=== PATIENT | female | born 1935 | race Caucasian/White ===

== ENCOUNTER 2017-08-20 07:47 | Emergency (ER) | payer MEDICARE, OTHER ==
--- NOTE | 2017-08-20 08:09 | EDM.PDOC ---
ED HPI GENERAL MEDICAL PROBLEM - General Chief Complaint: Lower Extremity Injury/Pain Stated Complaint: FALL AT HOME Time Seen by Provider: 08/20/17 07:48 Source of Information: Reports: Patient History Limitations: Reports: No Limitations - History of Present Illness INITIAL COMMENTS - FREE TEXT/NARRATIVE: Patient frantz here by EMS due to a fall at home on a rug near her back door. She had difficulty getting up off of the floor. She denies hitting her head, no LOC, does not take anticoagulation. She states she thinks she could walk on it with her walker. Is wanting to go home. Pain to her right knee with swelling and bruising seen. She has no other complaints. Open wound to her right knee and left lower bliss. Onset: Today, Sudden Location: Reports: Lower Extremity, Left, Lower Extremity, Right Quality: Reports: Sharp, Stabbing Severity: Mild Improves with: Reports: Cold Therapy Worsens with: Reports: Movement - Related Data Allergies Allergy/AdvReac Type Severity Reaction Status Date / Time No Known Allergies Allergy Verified 08/20/17 07:53 Home Meds: Home Meds Gabapentin [Neurontin] 100 mg PO BID 08/20/17 [History] Review of Systems - Review of Systems Review Of Systems: See Below Constitutional: Reports: No Symptoms Eyes: Reports: No Symptoms Ears: Reports: No Symptoms Nose: Reports: No Symptoms Mouth/Throat: Reports: No Symptoms Respiratory: Reports: No Symptoms Cardiovascular: Reports: No Symptoms GI/Abdominal: Reports: No Symptoms Genitourinary: Reports: No Symptoms Musculoskeletal: Reports: Leg Pain, Joint Pain, Muscle Pain Skin: Reports: Wound Neurological: Reports: No Symptoms Psychiatric: Reports: No Symptoms ED EXAM, GENERAL - Physical Exam Exam: See Below Exam Limited By: No Limitations General Appearance: Alert, WD/WN, No Apparent Distress Eye Exam: Bilateral Eye: EOMI Throat/Mouth: Normal Inspection, Normal Oropharynx Head: Atraumatic, Normocephalic Neck: Normal Inspection Respiratory/Chest: No Respiratory Distress, Lungs Clear, Normal Breath Sounds, No Accessory Muscle Use, Chest Non-Tender Cardiovascular: Normal Peripheral Pulses, Regular Rate, Rhythm, No Murmur Peripheral Pulses: 2+: Posterior Tibial (L), Posterior Tibial (R), Dorsalis Pedis (L), Dorsalis Pedis (R) GI/Abdominal: Normal Bowel Sounds, Soft, Non-Tender Extremities: Normal Capillary Refill, Pedal Edema, Joint Swelling, Leg Pain, Limited Range of Motion (right knee) Neurological: Alert, Oriented, CN II-XII Intact, Normal Cognition, No Motor/ Sensory Deficits Psychiatric: Normal Affect, Normal Mood Skin Exam: Warm, Dry, Normal Color, Wound/Incision (abrasion to right knee, skin tear to left lower bliss) Course - Vital Signs Last Recorded V/S: Last Vital Signs Temp 35.8 C 08/20/17 07:47 Pulse 76 08/20/17 07:47 Resp 18 08/20/17 07:47 BP 141/85 H 08/20/17 07:47 Pulse Ox 94 L 08/20/17 07:47 - Orders/Labs/Meds Orders: Active Orders 24 hr Category Date Time Status Knee 3V Rt [CR] Stat Exams 08/20/17 07:53 Taken Meds: Medications Discontinued Medications Generic Name Dose Route Start Last Admin Trade Name Jacksonq PRN Reason Stop Dose Admin Hydrocodone Bitart/Acetaminophen 1 tab 08/20/17 08:36 08/20/17 08:49 Conroy 325-10 Mg PO 08/20/17 08:37 1 tab ONETIME ONE Administration - Re-Assessments/Exams Free Text/Narrative Re-Assessment/Exam: 08/20/17 08:54 knee x-ray negative for acute fracture. Moderate joint effusion Departure - Departure Time of Disposition: 09:01 Disposition: Home, Self-Care 01 Condition: Good Clinical Impression: Sprain of right knee Qualifiers: Encounter type: initial encounter Qualified Code(s): S83.91XA - - Discharge Information Instructions: Knee Sprain, [id number] Referrals: Ramona Yu MD [Primary Care Provider] - Forms: ED Department Discharge Additional Instructions: Make sure to keep your knee elevated, wrapped with an TERRY wrap, and keep ice on it for 20-30 minutes at a time. Do not place ice directly on your knee and put it in a cloth or something to help prevent soft tissue damage from the cold. Follow up with your primary provider as symptoms warrant If your pain does not get better or is still painful after 10 days, see Dr. Yu for a possible MRI to check for soft tissue damage including cartilage, tendons, or ligaments. May take ibuprofen and tylenol for pain control. Please call us with any questions or concerns. Thank you for choosing [facility] for your care. - Problem List & Annotations (1) Sprain of right knee SNOMED Code(s): 78386688 Code(s): S83.91XA - SPRAIN OF UNSPECIFIED SITE OF RIGHT KNEE, INITIAL ENCOUNTER Status: Acute Priority: Low Qualifiers: Encounter type: initial encounter - Problem List Review Problem List Initiated/Reviewed/Updated: Yes - My Orders Last 24 Hours: My Active Orders 08/20/17 07:53 Knee 3V Rt [CR] Stat - Assessment/Plan Last 24 Hours: My Active Orders 08/20/17 07:53 Knee 3V Rt [CR] Stat Assessment:: Right knee sprain Plan: Make sure to keep your knee elevated, wrapped with an TERRY wrap, and keep ice on it for 20-30 minutes at a time. Do not place ice directly on your knee and put it in a cloth or something to help prevent soft tissue damage from the cold. Follow up with your primary provider as symptoms warrant If your pain does not get better or is still painful after 10 days, see Dr. Yu for a possible MRI to check for soft tissue damage including cartilage, tendons, or ligaments. May take ibuprofen and tylenol for pain control. Please call us with any questions or concerns. Thank you for choosing [facility] for your care.
[2017-08-20] MEDS ORDERED: Acetaminophen/HYDROcodone 325-10 MG Tab PO ONE (08:36)
== END 2017-08-20 09:08 | disposition home or self-care (01) ==
LOC: VM.ED 07:47
DX: S81.812A Laceration without foreign body, left lower leg, initial encounter (principal); S83.91XA Sprain of unspecified site of right knee, initial encounter; W18.30XA Fall on same level, unspecified, initial encounter; Y92.009 Unspecified place in unspecified non-institutional (private) residence as the place of occurrence of the external cause
CPT/HCPCS: 73562; 99284; A9270; 99283-GF

== ENCOUNTER 2018-01-06 21:50 | Emergency (ER) | payer MEDICARE, OTHER ==
[2018-01-06] MEDS ORDERED: Sodium Chloride 0.9% 10 ML Syringe FLUSH PRN (22:06)
--- NOTE | 2018-01-06 22:07 | EDM.PDOC ---
ED HPI GENERAL MEDICAL PROBLEM - General Chief Complaint: Lower Extremity Injury/Pain Time Seen by Provider: 01/06/18 21:58 Source of Information: Reports: Patient, EMS History Limitations: Reports: No Limitations - History of Present Illness INITIAL COMMENTS - FREE TEXT/NARRATIVE: Pt. states that she was reaching over to turn on a fan in her bedroom when she fell, injuring her R ankle. Pt. states that the discomfort is located on the R anterior ankle. She denies any numbness/tingling to the extremity. She did not feel any crack/snap or experience any crepitus during the incident. She states that she did not strike her head. Denies any neck or back pain. She states that all of her discomfort is isolated to her R anterior ankle. Onset: Today Location: Reports: Lower Extremity, Right Quality: Reports: Ache, Throbbing Severity: Severe Worsens with: Reports: Movement Context: Reports: Trauma - Related Data Allergies Allergy/AdvReac Type Severity Reaction Status Date / Time No Known Allergies Allergy Verified 01/06/18 21:58 Home Meds: Home Meds Aspirin [Halfprin] 81 mg PO DAILY 01/06/18 [History] Pregabalin [Lyrica] 75 mg PO BID 01/06/18 [History] Past Medical History Cardiovascular History: Reports: Hypertension Musculoskeletal History: Reports: Back Pain, Chronic Social & Family History - Tobacco Use Smoking Status *Q: Current Every Day Smoker Years of Tobacco use: 60 Packs/Tins Daily: 1 ED ROS GENERAL - Review of Systems Review Of Systems: See Below Constitutional: Reports: No Symptoms HEENT: Reports: No Symptoms Respiratory: Reports: No Symptoms Cardiovascular: Reports: No Symptoms Endocrine: Reports: No Symptoms GI/Abdominal: Reports: No Symptoms : Reports: No Symptoms Musculoskeletal: Reports: Leg Pain (R anterior ankle) Skin: Reports: No Symptoms Neurological: Reports: No Symptoms Psychiatric: Reports: No Symptoms Hematologic/Lymphatic: Reports: No Symptoms Immunologic: Reports: No Symptoms ED EXAM, GENERAL - Physical Exam Exam: See Below Exam Limited By: No Limitations General Appearance: Alert, WD/WN, No Apparent Distress Neck: Normal Inspection, Supple, Non-Tender, Full Range of Motion Respiratory/Chest: No Respiratory Distress, Lungs Clear, Normal Breath Sounds, No Accessory Muscle Use, Chest Non-Tender Cardiovascular: Normal Peripheral Pulses, Regular Rate, Rhythm, No Edema, No Gallop, No JVD, No Murmur, No Rub Peripheral Pulses: 2+: Posterior Tibial (L), Posterior Tibial (R), Dorsalis Pedis (L), Dorsalis Pedis (R) Extremities: Joint Swelling, Leg Pain (R anterior ankle), Limited Range of Motion Neurological: Alert, Oriented, CN II-XII Intact ED GENERAL MEDICAL PROCEDURES - Splinting Right Lower Extremity Splint Site: R lower leg/distal tib fib Splint Material: Fiberglass Splint Design: Sugar Tong Applied & Form Fitted By: Provider Provider Post-Splint Application NV Check: NV Status Normal, Good Position Complications: No Course - Vital Signs Last Recorded V/S: Last Vital Signs Temp 36.4 C 01/06/18 21:58 Pulse 83 01/06/18 21:58 Resp 16 01/06/18 21:58 BP 110/72 01/06/18 21:58 Pulse Ox 97 01/06/18 21:58 - Orders/Labs/Meds Orders: Active Orders 24 hr Category Date Time Status Ankle 2V Rt [CR] Stat Exams 01/06/18 21:58 Ordered - Radiology Interpretation Free Text/Narrative:: Spiral fracture of R tibia Departure - Departure Time of Disposition: 11:00 Disposition: DC/Tfer to Acute Hospital 02 Clinical Impression: Fracture of tibia with fibula, right, closed, Closed fracture of tibia AND fibula - Discharge Information Forms: ED Department Discharge - Problem List Review Problem List Initiated/Reviewed/Updated: Yes - My Orders Last 24 Hours: My Active Orders 01/06/18 21:58 Ankle 2V Rt [CR] Stat - Assessment/Plan Last 24 Hours: My Active Orders 01/06/18 21:58 Ankle 2V Rt [CR] Stat Assessment:: R distal tib fib fracture Plan: Transfer [facility] ground ambulance. Dr. Zhang-Hospitalist is accepting.
[2018-01-06] MEDS: Morphine 4 MG/ML Syringe IVPUSH ONE (22:13)
[2018-01-06] MEDS: Morphine 2 MG/ML Syringe IVPUSH ONE ×2 (22:35→23:21)
[2018-01-06] MEDS: Ondansetron 4 MG/2 ML SDV IVPUSH ONE (22:37)
[2018-01-06] MEDS: Sodium Chloride 0.9% 1,000 ML IV STA (23:47)
== END 2018-01-06 23:59 | disposition short-term general hospital (02) ==
LOC: VM.ED 21:50
DX: S82.301A Unspecified fracture of lower end of right tibia, initial encounter for closed fracture (principal); S82.831A Other fracture of upper and lower end of right fibula, initial encounter for closed fracture; I10 Essential (primary) hypertension; F17.210 Nicotine dependence, cigarettes, uncomplicated; Z79.82 Long term (current) use of aspirin; W19.XXXA Unspecified fall, initial encounter
CPT/HCPCS: 29515; 36415; 73600-RT; 80053; 85025; 85610; 96374; 96375; 96376; 99285; G0480; J2270; J2405; J7030

== ENCOUNTER 2018-01-11 10:37 | Inpatient (IN) | payer MEDICARE, OTHER ==
[2018-01-11] MEDS ORDERED: Fluticasone Propionate Nasal Spray 16 GM Bottle NASBOTH PRN (12:34)
[2018-01-11] MEDS: Enoxaparin 30 MG/0.3 ML Syringe SUBCUT SCH (13:00)
[2018-01-11] MEDS: Acetaminophen/HYDROcodone 325-5 MG Tab PO PRN ×3 (13:04→20:50)
--- NOTE | 2018-01-11 19:49 | HP ---
HISTORY OF PRESENT ILLNESS: The patient is an 82-year-old female who had fallen at home on 01/07/2018. She had some wine and felt her gait unstable. She had been started on Lyrica about a week prior because of chronic back pain, which had been helping better with her back pain and started gabapentin. The patient does have known peripheral vascular disease as well as chronic low back pain. The patient underwent internal fixation with intramedullary william of her right tib - fib fracture and she is to be nonweightbearing for 6 to 8 weeks afterward. Her hemoglobin had dropped from 13 down to 10.9. She did not require transfusion. She did have a hypoxic episode after receiving some IV Dilaudid, but did recover. She did use incentive spirometry. She did have a NicoDerm patch placed to help with smoking and a nicotine withdrawal. Her bowels did work today after being given a suppository. The patient at first had just worked with physical therapy. She is to leave current dressing on her right leg for a week. She follows up with Ortho in 2 weeks' time. MEDICATIONS: That she is currently on is, 1. Calcium carbonate 1250 one pill a day. 2. Vitamin D 1000 units 1 pill a day. 3. Acetaminophen 325 as needed. 4. Aspirin 81 mg 1 pill daily. 5. Fluticasone 1 to 2 sprays each nostril twice a day as needed. 6. Hydrochlorothiazide 25 mg 1 pill daily. 7. Lisinopril 10 mg 1 pill a day. 8. Metoprolol succinate 25 mg 1 pill a day. 9. Singulair 10 mg 1 pill a day. 10.Multivitamin 1 pill a day. 11.Lyrica 75 mg 1 pill twice a day. 12 Hydrocodone/ apap 5/325 mg 1 every 4 hrs as needed. Note, prior to her hospitalization, she had been on Tylenol No.3 two pills every 6 hours for moderate pain. ALLERGIES: Prolia. She became weak and nauseated. PAST MEDICAL HISTORY: She has hypertension. She has COPD. She has peripheral vascular disease. 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 She had Charcot joint to her left foot, nondiabetic, wears inserts. She has had chronic low back pain without sciatica, been to a chiropractor, massage. She has been on meloxicam for this, Tylenol No.3, declined physical therapy. MRI on 08/14/2016 showed L4-5 severe spinal stenosis and she had an MRI of her thoracic spine and had degenerative joint disease. I believe she has had a joint injection 1 time. She has had a hyperplastic colon polyps on 05/26/2012 x2. She was supposed to have a next colonoscopy 2017; however, she refused to have that. She has had degenerative joint disease. Elevated CEA on 08/01/2015 at 7.5. She did have colon cancer surgery in 1979 and she has had previous known colon polyps. She has had hypertension, gait abnormality, which is chronic. She had a syncopal episode on 09/25/2009. She had negative carotid ultrasound, negative Cardiolite stress test. Echo at that time showed ejection fraction of 60%. Mild diastolic dysfunction. Trace mitral regurgitation. Pulmonary artery pressure 37. She has had a hiatal hernia. Her gastric bypass was in the . She has had hyperglycemia. She has had lumbar canal stenosis. She did have referral to Neurosurgery. She did have colon cancer in 1979, unknown type of colon cancer. She has had some depression in 2017. She had started Cymbalta, used it for a month, then stopped. She has had some mixed incontinence. She declined medication or physical therapy. Osteoporosis, She had onset of osteopenia in 2002. In 2005, she had osteoporosis. Started Prolia in 2011 and 2014 DEXA scan, improved. She has had emphysema on 05/2014. Peak flow meter was 250. She smokes 1-1/2 packs a day. Peripheral vascular disease. She had a chronic infection of her right foot on 10/30/2014 which had abnormal ESTEBAN. She had an arterial ultrasound of right leg. She has had osteoarthritis. She has spinal stenosis of lumbar region with neurogenic claudication. She has had tobacco use. She had a traumatic ulcer of her right knee on 08/20/2017 from a fall. She had a foot cellulitis that was involved with the wound clear with many skin grafting procedures. She has had urticaria. PAST SURGICAL HISTORY: She has had an appendectomy, carpal tunnel, cataract surgery bilaterally, cholecystectomy, colon resection in 1980 for colon cancer. She had gastric bypass in 1980, hysterectomy. She has had intravitreal injection of her right eye bilaterally. 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 She had lysis of adhesions of her abdomen in 1977. She has had vascular bypass on the right on 01/03/2015, right femoral [id number] popliteal bypass to saphenous vein graft. She has had a Yag capsulotomy on both eyes. FAMILY MEDICAL HISTORY: Mother has had colorectal cancer. Father had blood problems. Sister has had breast cancer. Grandchild had a traumatic brain injury at 18. SOCIAL HISTORY: She currently smokes quarter pack a day of cigarettes every day. She has smoked for many years. She drinks about 2 glasses of wine per week. She is . She has children, 2 sons and a daughter. VACCINATION: She has had her flu shot on 08/12/2017. She had a pneumococcal 13 on 07/31/2015. She had pneumococcal 23 on 09/21/2007 and 09/13/2002. Tdap on 04/22/2011. Zostavax on 08/06/2012. REVIEW OF SYSTEMS: She does have chronic back pain. She denies any sore throat. No headaches. No double vision. No cough. No shortness of breath. Her bowels have been somewhat slow. She has pain of her right leg from her recent surgery and fall. She does have problems with her joint of her left foot with standing. She does have coughing. No bruising problems. OBJECTIVE: VITAL SIGNS: Her weight is 90.71 kg, her height 1.6 m, temperature is 36.2, pulse 78, blood pressure is 135/67, respirations are 18, sats are 97%. SKIN: [place], warm, and dry. HEENT: Pupils equal and react to light. Voice is slightly hoarse, which is chronic for patient. Mucous membranes are moist. NECK: Supple. Nontender. No thyromegaly. HEART: Regular rate and rhythm without murmurs or bruits. Lungs: Have diminished breath sounds on bases. BREASTS: Deferred. Abdomen: Obese, soft, nontender. Bowel sounds present. No hepatosplenomegaly. Her right lower leg is wrapped from her toes to above her knee. She does have trace edema on her right foot that is slightly tender to palpation. Her left leg is slender thin. There is no induration, no swelling. She has normal sensation of her lower legs. NEUROLOGIC: She moves all extremities symmetric. Strength is noted to be weak throughout her body. PSYCH: Her mood is alert, good. She is pleasant to visit with. She does feel a bit frustrated with her chronic health conditions. IMPRESSION: 1. status post right leg internal fixation with william placement of spiral tibial fracture. 2. Right knee strain. 3. Mild anemia secondary to blood loss. 4. Hypertension. 5. Chronic obstructive pulmonary disease. 6. Nicotine dependence. 7. Osteoporosis. 8. Chronic lumbar back pain with lumbar stenosis. 9. Allergic rhinitis. 10.History of gastric bypass. 11.Charcot joint of foot. 12.Gait imbalance. PLAN: The patient will be admitted to swing bed for therapy. She has to be nonweightbearing for 6 weeks. She will need physical therapy for strengthening to learn how to walk with a walker. She will receive occupational therapy, learn how to do her ADLs. She will have Social Care Services also for the patient. We will continue nicotine patch for patient. We will hold her Tylenol No.3 right now and just use her hydrocodone for pain control. She is currently on Lyrica, which she says has started to help with her chronic back pain. She has only been on it for about a week or so, so we may need to increase the dose of this. We will check a urine on the patient to make sure she does not have bladder infection. We will need to keep track of her bowels and make sure she does not end up with constipation problems. We will recheck her electrolytes and hemoglobin in a few days. The patient will be placed on Lovenox for DVT prophylaxis. Because of risk of DVTs of her being more immobilized because of need for healing. Anticipation would be for the patient to be able to go home. 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 The patient will keep her appointments with Orthopedics. Would not be surprised the patient would have some delayed healing of her wounds due to her history of peripheral vascular disease and her previous history of prolonged traumatic bruise to her knee that took several months to heal up. We will need to keep track of the patient's mood and if she would happen to become more depressed, she may need treatment at this again. GM01/11/2018 12:58:05 MODL: 01/11/2018 19:30:42 /[id number] CHRISSIE
[2018-01-11] MEDS: Montelukast 10 MG Tab PO SCH (20:49)
[2018-01-11] MEDS: Melatonin 3 MG Tab PO PRN (20:49)
[2018-01-11] MEDS: Magnesium Hydroxide 400 MG/5 ML Susp 30 ML Cup PO PRN (20:50)
[2018-01-11] MEDS: Pregabalin 25 MG Cap PO SCH (20:50)
[2018-01-12] MEDS: Acetaminophen/HYDROcodone 325-5 MG Tab PO PRN ×4 (00:56→20:40)
[2018-01-12 07:08] LABS: CHLORIDE,CL 96 mmol/L (98-107); SODIUM,NA 132 mmol/L (136-145)
[2018-01-12] MEDS: Enoxaparin 30 MG/0.3 ML Syringe SUBCUT SCH (07:57)
[2018-01-12] MEDS: Pregabalin 25 MG Cap PO SCH ×2 (07:58→20:40)
[2018-01-12] MEDS: Nicotine 21 MG/24 Hr Patch TRDERM SCH (07:58)
[2018-01-12] MEDS: Lisinopril 5 MG Tab PO SCH (07:59)
[2018-01-12] MEDS: Hydrochlorothiazide 25 MG Tab PO SCH (07:59)
[2018-01-12] MEDS: Acetaminophen 325 MG Tab PO PRN ×2 (07:59→14:08)
[2018-01-12] MEDS: Calcium Carbonate/Vitamin D3 1250 MG-200 Unit Tab PO SCH (08:00)
[2018-01-12] MEDS: Metoprolol Succinate 25 MG Tab.ER PO SCH (08:00)
[2018-01-12] MEDS: Cholecalciferol (Vitamin D3) 1,000 Unit Tab PO SCH (08:01)
[2018-01-12] MEDS: Multivitamins with Iron/Calcium/Folic Acid/Minerals Tab PO SCH (08:01)
[2018-01-12] MEDS: Aspirin 81 MG Tab.EC PO SCH (08:01)
[2018-01-12] MEDS: Acetaminophen/oxyCODONE 325-5 MG Tab PO PRN ×2 (10:13→18:13)
[2018-01-12] MEDS: Montelukast 10 MG Tab PO SCH (20:40)
[2018-01-12] MEDS: Melatonin 3 MG Tab PO PRN (20:40)
[2018-01-13] MEDS: Acetaminophen 325 MG Tab PO PRN ×4 (00:45→23:41)
[2018-01-13] MEDS: Acetaminophen/oxyCODONE 325-5 MG Tab PO PRN ×4 (00:46→23:41)
[2018-01-13] MEDS: Acetaminophen/HYDROcodone 325-5 MG Tab PO PRN ×3 (05:25→20:19)
[2018-01-13] MEDS: Calcium Carbonate/Vitamin D3 1250 MG-200 Unit Tab PO SCH (08:22)
[2018-01-13] MEDS: Lisinopril 5 MG Tab PO SCH (08:23)
[2018-01-13] MEDS: Hydrochlorothiazide 25 MG Tab PO SCH (08:23)
[2018-01-13] MEDS: Pregabalin 25 MG Cap PO SCH ×2 (08:23→20:19)
[2018-01-13] MEDS: Cholecalciferol (Vitamin D3) 1,000 Unit Tab PO SCH (08:24)
[2018-01-13] MEDS: Multivitamins with Iron/Calcium/Folic Acid/Minerals Tab PO SCH (08:24)
[2018-01-13] MEDS: Metoprolol Succinate 25 MG Tab.ER PO SCH (08:25)
[2018-01-13] MEDS: Aspirin 81 MG Tab.EC PO SCH (08:26)
[2018-01-13] MEDS: Nicotine 21 MG/24 Hr Patch TRDERM SCH (08:26)
[2018-01-13] MEDS: Enoxaparin 30 MG/0.3 ML Syringe SUBCUT SCH (08:27)
[2018-01-13] MEDS: Melatonin 3 MG Tab PO PRN (20:19)
[2018-01-13] MEDS: Montelukast 10 MG Tab PO SCH (20:19)
[2018-01-14] MEDS: Acetaminophen/HYDROcodone 325-5 MG Tab PO PRN ×4 (02:08→22:55)
[2018-01-14] MEDS: Acetaminophen 325 MG Tab PO PRN (06:21)
[2018-01-14] MEDS: Acetaminophen/oxyCODONE 325-5 MG Tab PO PRN ×3 (06:21→18:34)
[2018-01-14] MEDS: Calcium Carbonate/Vitamin D3 1250 MG-200 Unit Tab PO SCH (07:42)
[2018-01-14] MEDS: Multivitamins with Iron/Calcium/Folic Acid/Minerals Tab PO SCH (07:43)
[2018-01-14] MEDS: Hydrochlorothiazide 25 MG Tab PO SCH (07:43)
[2018-01-14] MEDS: Aspirin 81 MG Tab.EC PO SCH (07:43)
[2018-01-14] MEDS: Metoprolol Succinate 25 MG Tab.ER PO SCH (07:43)
[2018-01-14] MEDS: Lisinopril 5 MG Tab PO SCH (07:43)
[2018-01-14] MEDS: Cholecalciferol (Vitamin D3) 1,000 Unit Tab PO SCH (07:43)
[2018-01-14] MEDS: Pregabalin 25 MG Cap PO SCH ×2 (07:44→20:46)
[2018-01-14] MEDS: Enoxaparin 30 MG/0.3 ML Syringe SUBCUT SCH (07:44)
[2018-01-14] MEDS: Nicotine 21 MG/24 Hr Patch TRDERM SCH (08:40)
--- NOTE | 2018-01-14 09:51 | PN ---
Progress Note for REN BRITTON Date: 01/14/2018 Room #: VM.218 SUBJECTIVE: The patient's pain is a little bit better controlled with oxycodone. The patient comments that she has to get up at least every 2 hours during the night to void. She was wondering what can be done if she should hold back on her diuretic for this. Also, the patient had a previous traumatic ulcer on her right knee that had healed up when seen at her most recent clinic visit and now after her surgery, there has been a recurrence of slight skin sloughing noted. OBJECTIVE: Vital Signs: Her temperature is 36.4, pulse 78, blood pressure is 101/65, respirations are 18, and sats are 98% on room air. General: She is alert and calm to visit. Heart: Regular rate and rhythm. Lungs: Clear to auscultation. Abdomen: Bowel sounds present. Soft. Musculoskeletal: On her right knee, there is a 1 x 3 cm area of irritated skin that is slightly sloughing, which is going down to the subcuticular layer. There is no granulomatous drainage or seepage noted. Neurologic: She is appropriate and alert. She is still weak with transfers. LABORATORY STUDIES: Her hemoglobin on 01/12/2018 had been 11.0, white blood cell count 6.8, and platelets are 252. Sodium is 132, potassium 3.6, creatinine 0.9, GFR greater than 60, glucose 125. Urine on admission was normal. IMPRESSION: 1. Right tib-fib fracture recovery. 2. Weakness secondary to right tib-fib fracture. 3. Anemia secondary to blood loss. 4. Mild hyponatremia. 5. Mixed incontinence. 6. Traumatic ulcer of right knee, which is recurring. 7. Chronic obstructive pulmonary disease. 8. Chronic back pain. PLAN: We will continue her pain pills the same. We will add Ditropan to see if that will help with her bladder. She is warned of side effects of dry mouth as well as constipation. For her knee, we will start adding Optifoam dressing on that to protect the patella skin, to make certain it does not reoccur. The patient had previous grafting surgery to help that heal up. The patient is working with Physical Therapy and Occupational Therapy. Apparently, they had no services that they could offer the patient. Possibly next week, the patient may be able to go home, but it depends on her stability with transfers and her upper body strength. [employer] are working with the patient. The patient is also using the nicotine patches and that is helping with smoking cessation. GM01/14/2018 08:45:31 MODL: 01/14/2018 09:07:43 /[id number]
[2018-01-14] MEDS: Oxybutynin 5 MG Tab.ER PO SCH (10:20)
--- NOTE | 2018-01-14 16:49 | PN ---
2nd Progress Note for REN BRITTON Date: 01/14/2018 Room #: VM.218 SUBJECTIVE: Please see other note done earlier today. The patient was concerned about her incision on the inferior aspect by her ankle if it is starting to become more red. There is questionably little bit of drainage from the area. To note, the patient has not been wanting to keep her Matthew wrap on her legs and she has come here as it was causing discomfort. OBJECTIVE: On inspection, there is a little bit of minimal duskiness on the inferior aspect of her incision. It is not really warm. It does ryder a little bit. To note, the patient does have known peripheral vascular disease as well. There is a trace edema in the foot. IMPRESSION: 1. Post right tib-fib fracture. 2. Peripheral vascular disease. PLAN: I do feel the patient needs to have her Matthew wrap replace the area to help keep the fluid out of there. I do not feel there is any evidence of a cellulitis there right now. We will continue to keep an eye on this. The patient again commented concerned about her patella area that had a previous skin graft for a traumatic ulcer and stated that we have placed a PolyMem dressing on the area and we will just observe this right now, but also having the fluid out of her leg is important as well. GM01/14/2018 16:16:49 MODL: 01/14/2018 16:43:31 /[id number] CHRISSIE
[2018-01-14] MEDS: Montelukast 10 MG Tab PO SCH (20:47)
[2018-01-14] MEDS: Melatonin 3 MG Tab PO PRN (20:47)
[2018-01-14] MEDS: Magnesium Hydroxide 400 MG/5 ML Susp 30 ML Cup PO PRN (20:55)
[2018-01-15] MEDS: Acetaminophen/oxyCODONE 325-5 MG Tab PO PRN ×4 (01:09→20:15)
[2018-01-15] MEDS: Acetaminophen/HYDROcodone 325-5 MG Tab PO PRN ×3 (05:12→22:45)
[2018-01-15] MEDS: Nicotine 21 MG/24 Hr Patch TRDERM SCH (08:11)
[2018-01-15] MEDS: Pregabalin 25 MG Cap PO SCH ×2 (08:12→20:12)
[2018-01-15] MEDS: Aspirin 81 MG Tab.EC PO SCH (08:14)
[2018-01-15] MEDS: Calcium Carbonate/Vitamin D3 1250 MG-200 Unit Tab PO SCH (08:14)
[2018-01-15] MEDS: Multivitamins with Iron/Calcium/Folic Acid/Minerals Tab PO SCH (08:14)
[2018-01-15] MEDS: Oxybutynin 5 MG Tab.ER PO SCH (08:15)
[2018-01-15] MEDS: Enoxaparin 30 MG/0.3 ML Syringe SUBCUT SCH (08:15)
[2018-01-15] MEDS: Cholecalciferol (Vitamin D3) 1,000 Unit Tab PO SCH (08:15)
[2018-01-15] MEDS: Metoprolol Succinate 25 MG Tab.ER PO SCH (11:33)
[2018-01-15] MEDS: Lisinopril 5 MG Tab PO SCH (11:33)
[2018-01-15] MEDS: Hydrochlorothiazide 25 MG Tab PO SCH (11:33)
[2018-01-15] MEDS: Melatonin 3 MG Tab PO PRN (20:12)
[2018-01-15] MEDS: Montelukast 10 MG Tab PO SCH (20:13)
[2018-01-16] MEDS: Acetaminophen/oxyCODONE 325-5 MG Tab PO PRN ×3 (03:52→18:33)
[2018-01-16] MEDS: Oxybutynin 5 MG Tab.ER PO SCH (08:18)
[2018-01-16] MEDS: Metoprolol Succinate 25 MG Tab.ER PO SCH (08:18)
[2018-01-16] MEDS: Cholecalciferol (Vitamin D3) 1,000 Unit Tab PO SCH (08:18)
[2018-01-16] MEDS: Aspirin 81 MG Tab.EC PO SCH (08:18)
[2018-01-16] MEDS: Calcium Carbonate/Vitamin D3 1250 MG-200 Unit Tab PO SCH (08:18)
[2018-01-16] MEDS: Multivitamins with Iron/Calcium/Folic Acid/Minerals Tab PO SCH (08:18)
[2018-01-16] MEDS: Pregabalin 25 MG Cap PO SCH ×2 (08:18→20:28)
[2018-01-16] MEDS: Magnesium Hydroxide 400 MG/5 ML Susp 30 ML Cup PO PRN (08:18)
[2018-01-16] MEDS: Enoxaparin 30 MG/0.3 ML Syringe SUBCUT SCH (08:19)
[2018-01-16] MEDS: Acetaminophen/HYDROcodone 325-5 MG Tab PO PRN ×2 (08:19→20:28)
[2018-01-16] MEDS: Nicotine 21 MG/24 Hr Patch TRDERM SCH (08:19)
[2018-01-16] MEDS: Hydrochlorothiazide 25 MG Tab PO SCH (08:19)
[2018-01-16] MEDS: Lisinopril 5 MG Tab PO SCH (08:20)
[2018-01-16] MEDS: Ibuprofen 200 MG Tab PO PRN ×2 (11:07→15:25)
[2018-01-16] MEDS: Melatonin 3 MG Tab PO PRN (20:27)
[2018-01-16] MEDS: Montelukast 10 MG Tab PO SCH (20:28)
[2018-01-17] MEDS: Acetaminophen/oxyCODONE 325-5 MG Tab PO PRN ×4 (00:30→20:34)
[2018-01-17] MEDS: Acetaminophen/HYDROcodone 325-5 MG Tab PO PRN ×3 (03:52→16:02)
[2018-01-17 06:59] LABS: CHLORIDE,CL 94 mmol/L (98-107); SODIUM,NA 130 mmol/L (136-145)
[2018-01-17] MEDS: Hydrochlorothiazide 25 MG Tab PO SCH (07:37)
[2018-01-17] MEDS: Calcium Carbonate/Vitamin D3 1250 MG-200 Unit Tab PO SCH (07:37)
[2018-01-17] MEDS: Oxybutynin 5 MG Tab.ER PO SCH (07:37)
[2018-01-17] MEDS: Lisinopril 5 MG Tab PO SCH (07:37)
[2018-01-17] MEDS: Multivitamins with Iron/Calcium/Folic Acid/Minerals Tab PO SCH (07:37)
[2018-01-17] MEDS: Aspirin 81 MG Tab.EC PO SCH (07:37)
[2018-01-17] MEDS: Cholecalciferol (Vitamin D3) 1,000 Unit Tab PO SCH (07:38)
[2018-01-17] MEDS: Nicotine 21 MG/24 Hr Patch TRDERM SCH (07:38)
[2018-01-17] MEDS: Metoprolol Succinate 25 MG Tab.ER PO SCH (07:38)
[2018-01-17] MEDS: Pregabalin 25 MG Cap PO SCH ×3 (07:38→20:33)
[2018-01-17] MEDS: Enoxaparin 30 MG/0.3 ML Syringe SUBCUT SCH (07:38)
--- NOTE | 2018-01-17 09:52 | PN ---
Progress Note for REN BRITTON Date: 01/17/2018 Room #: VM.218 Just to let you know when I was hearing your communications, it sounds more garbled-like you are under water. It is just a different sound than what it used to be, but just thought I would give you the FYI. SUBJECTIVE: The patient is still having pain of her back and of her legs. The hydrocodone has helped. She did receive 1 Naprosyn over the weekend, even though she is on Lovenox, so she should not be on this. Patient commented that she has had lowering of her blood pressure, wondering what that could be from. She stated that because she is not smoking at home as well as because she is probably eating a lower salt diet, that may have made a difference. She has had some times where she has not been feeling as lightheaded or as dizzy. She is still nonweightbearing for her right leg. Her family is working to get arrangements at home for her house to have accommodations to be handicapped accessible with a ramp and a medical bed. When she is ready for discharge home, will most likely need home health to be arranged. The patient was going about her followup ortho appointment. It was just to have vicente removed. She was wondering if this can be done here and I stated that no, it is also a postoperative check as well as concern with regarding her skin on her knee that needs to be addressed. OBJECTIVE: Vital Signs: Her temperature is 36.3, pulse 67, blood pressure is 127/71, her respiratory rate is 18, saturations are 94%. Skin: Her leg is wrapped right now, I cannot see her incisions. Heart: Regular rate and rhythm. Lungs: Diminished breath sounds on bases. Abdomen: Soft. LABORATORY DATA: Today shows that her hemoglobin has improved to 11.3 from 11.0. Sodium has dropped slightly to 130, potassium 3.5, creatinine 0.9, GFR greater than 60. IMPRESSION: 1. Right tib-fib fracture. 2. Chronic back pain. 3. Postoperative knee pain. 4. Hyponatremia. 5. Anemia, improving. 6. Some traumatic ulcer on the right knee that has reoccurred. PLAN: We will reduce the patient's hydrochlorothiazide to 12.5 mg a day. Yes, she does need to be seen by Ortho. We will have her be arranged to have a handicap transfer van. It is unclear as to when the patient will be able to be discharged home yet as she is still improving with physical therapy here at the hospital and the patient would need support services at home. We will encourage her to eat more salt in her diet for her bowels. She is already on the senna 2 plus twice a day, so we will add some MiraLAX on board to help make certain that her stools stay soft. We will increase her Lyrica to 75 mg 1 pill 3 times a day. The patient will need to have instructions on how to use Lovenox, so she will need to stay on this until she is weightbearing to prevent risk of DVTs. GM01/17/2018 08:51:02 MODL: 01/17/2018 09:39:44 /[id number]
[2018-01-17] MEDS: Polyethylene Glycol 3350 Powder 17 GM Packet PO SCH (11:10)
[2018-01-17] MEDS: Montelukast 10 MG Tab PO SCH (20:33)
[2018-01-17] MEDS: Melatonin 3 MG Tab PO PRN (20:36)
[2018-01-18] MEDS: Acetaminophen/oxyCODONE 325-5 MG Tab PO PRN ×4 (04:15→22:43)
[2018-01-18] MEDS: Hydrochlorothiazide 25 MG Tab PO SCH (07:38)
[2018-01-18] MEDS: Oxybutynin 5 MG Tab.ER PO SCH (07:38)
[2018-01-18] MEDS: Metoprolol Succinate 25 MG Tab.ER PO SCH (07:38)
[2018-01-18] MEDS: Pregabalin 25 MG Cap PO SCH ×3 (07:38→20:24)
[2018-01-18] MEDS: Aspirin 81 MG Tab.EC PO SCH (07:38)
[2018-01-18] MEDS: Cholecalciferol (Vitamin D3) 1,000 Unit Tab PO SCH (07:39)
[2018-01-18] MEDS: Multivitamins with Iron/Calcium/Folic Acid/Minerals Tab PO SCH (07:39)
[2018-01-18] MEDS: Lisinopril 5 MG Tab PO SCH (07:39)
[2018-01-18] MEDS: Calcium Carbonate/Vitamin D3 1250 MG-200 Unit Tab PO SCH (07:39)
[2018-01-18] MEDS: Nicotine 21 MG/24 Hr Patch TRDERM SCH (07:39)
[2018-01-18] MEDS: Polyethylene Glycol 3350 Powder 17 GM Packet PO SCH (07:40)
[2018-01-18] MEDS: Enoxaparin 30 MG/0.3 ML Syringe SUBCUT SCH (07:40)
[2018-01-18] MEDS: Acetaminophen/HYDROcodone 325-5 MG Tab PO PRN ×3 (07:58→19:50)
[2018-01-18] MEDS: Montelukast 10 MG Tab PO SCH (20:01)
[2018-01-18] MEDS: Melatonin 3 MG Tab PO PRN (20:02)
[2018-01-19] MEDS: Acetaminophen/HYDROcodone 325-5 MG Tab PO PRN ×4 (02:06→20:03)
[2018-01-19] MEDS: Acetaminophen/oxyCODONE 325-5 MG Tab PO PRN ×3 (05:31→17:50)
[2018-01-19] MEDS: Calcium Carbonate/Vitamin D3 1250 MG-200 Unit Tab PO SCH (08:17)
[2018-01-19] MEDS: Lisinopril 2.5 MG Tab PO SCH (08:17)
[2018-01-19] MEDS: Hydrochlorothiazide 25 MG Tab PO SCH (08:18)
[2018-01-19] MEDS: Pregabalin 25 MG Cap PO SCH ×3 (08:19→20:03)
[2018-01-19] MEDS: Cholecalciferol (Vitamin D3) 1,000 Unit Tab PO SCH (08:20)
[2018-01-19] MEDS: Aspirin 81 MG Tab.EC PO SCH (08:20)
[2018-01-19] MEDS: Multivitamins with Iron/Calcium/Folic Acid/Minerals Tab PO SCH (08:22)
[2018-01-19] MEDS: Metoprolol Succinate 25 MG Tab.ER PO SCH (08:22)
[2018-01-19] MEDS: Oxybutynin 5 MG Tab.ER PO SCH (08:22)
[2018-01-19] MEDS: Polyethylene Glycol 3350 Powder 17 GM Packet PO SCH (08:23)
[2018-01-19] MEDS: Enoxaparin 30 MG/0.3 ML Syringe SUBCUT SCH (08:23)
[2018-01-19] MEDS: Nicotine 21 MG/24 Hr Patch TRDERM SCH (08:23)
--- NOTE | 2018-01-19 09:21 | PN ---
Progress Note for REN BRITTON Date: 01/19/2018 Room #: VM.218 SUBJECTIVE: This is a jeby-ic-juhn evaluation for documentation for patient needing DME equipment for a semi-electric hospital bed. The patient had sustained a right tib-fib fracture on 01/07/2018 and she underwent surgery on 01/08/2018. She came to swing bed on 01/11/2018 at [facility] and has been receiving physical therapy and had an occupational therapy assessment. The patient has to be non-weightbearing for a william that was placed in her right tibia. The patient requires frequent position changes to prevent bedsores. The patient has had problems with chronic back pain with lumbar stenosis, has had Neurosurgery consult. The patient has known peripheral vascular disease and has had intervention with this. The patient did sustain a traumatic ulcer in 07/2017, which had a very prolonged healing course, which required skin grafting surgery to be done, and so she is at high risk for ulcer changes. The patient does have obesity, which does limit her mobility and strength. She also does have COPD, so she does require the head of her bed to be elevated to 30 degrees to prevent problems with aspiration and shortness of breath. She is noted to have diastolic dysfunction with an echocardiogram that was done in 2008. The patient had previous gastric bypass surgery, so she does have a risk for hiatal hernia, which she also does have symptoms of, and needs to have her head of her bed elevated. The patient is 82 years old as well and so upper body strength is limited for her to be able to do position changes. It is not felt that the patient continue to use an ordinary bed to provide for her healing well while she is nonweightbearing. She also does require position changes for her leg to also prevent sores on her buttock area. It is felt the patient needs to have a semi-electric hospital bed with side rails and a mattress. The patient also does have COPD as well. She is currently in the process of stopping smoking, so does have increased respiratory secretions in regard to that. It is planned that the patient will be discharged from swing bed approximately on 01/24/2018. A separate prescription was written out for the semi-electric hospital bed. GM01/19/2018 08:38:57 MODL: 01/19/2018 09:05:14 /[id number] CHRISSIE
[2018-01-19] MEDS: Melatonin 3 MG Tab PO PRN (20:03)
[2018-01-19] MEDS: Montelukast 10 MG Tab PO SCH (20:03)
[2018-01-20] MEDS: Acetaminophen/oxyCODONE 325-5 MG Tab PO PRN ×4 (01:42→22:53)
[2018-01-20] MEDS: Nicotine 21 MG/24 Hr Patch TRDERM SCH (08:19)
[2018-01-20] MEDS: Polyethylene Glycol 3350 Powder 17 GM Packet PO SCH (08:19)
[2018-01-20] MEDS: Enoxaparin 30 MG/0.3 ML Syringe SUBCUT SCH (08:19)
[2018-01-20] MEDS: Metoprolol Succinate 25 MG Tab.ER PO SCH (08:20)
[2018-01-20] MEDS: Calcium Carbonate/Vitamin D3 1250 MG-200 Unit Tab PO SCH (08:20)
[2018-01-20] MEDS: Pregabalin 25 MG Cap PO SCH ×3 (08:20→19:55)
[2018-01-20] MEDS: Hydrochlorothiazide 25 MG Tab PO SCH (08:21)
[2018-01-20] MEDS: Aspirin 81 MG Tab.EC PO SCH (08:21)
[2018-01-20] MEDS: Lisinopril 2.5 MG Tab PO SCH (08:21)
[2018-01-20] MEDS: Multivitamins with Iron/Calcium/Folic Acid/Minerals Tab PO SCH (08:21)
[2018-01-20] MEDS: Cholecalciferol (Vitamin D3) 1,000 Unit Tab PO SCH (08:21)
[2018-01-20] MEDS: Oxybutynin 5 MG Tab.ER PO SCH (08:21)
[2018-01-20] MEDS: Acetaminophen/HYDROcodone 325-5 MG Tab PO PRN (11:45)
[2018-01-20] MEDS: Montelukast 10 MG Tab PO SCH (19:55)
[2018-01-20] MEDS: Melatonin 3 MG Tab PO PRN (19:58)
[2018-01-21] MEDS: Acetaminophen/oxyCODONE 325-5 MG Tab PO PRN ×3 (06:09→18:12)
[2018-01-21 07:14] LABS: CHLORIDE,CL 94 mmol/L (98-107); SODIUM,NA 131 mmol/L (136-145)
[2018-01-21] MEDS: Pregabalin 25 MG Cap PO SCH ×3 (08:44→20:07)
[2018-01-21] MEDS: Multivitamins with Iron/Calcium/Folic Acid/Minerals Tab PO SCH (08:45)
[2018-01-21] MEDS: Calcium Carbonate/Vitamin D3 1250 MG-200 Unit Tab PO SCH (08:45)
[2018-01-21] MEDS: Aspirin 81 MG Tab.EC PO SCH (08:45)
[2018-01-21] MEDS: Oxybutynin 5 MG Tab.ER PO SCH (08:45)
[2018-01-21] MEDS: Metoprolol Succinate 25 MG Tab.ER PO SCH (08:46)
[2018-01-21] MEDS: Lisinopril 2.5 MG Tab PO SCH (08:46)
[2018-01-21] MEDS: Cholecalciferol (Vitamin D3) 1,000 Unit Tab PO SCH (08:46)
[2018-01-21] MEDS: Polyethylene Glycol 3350 Powder 17 GM Packet PO SCH (08:48)
[2018-01-21] MEDS: Hydrochlorothiazide 25 MG Tab PO SCH (08:48)
[2018-01-21] MEDS: Nicotine 21 MG/24 Hr Patch TRDERM SCH (08:48)
[2018-01-21] MEDS: Enoxaparin 30 MG/0.3 ML Syringe SUBCUT SCH (08:50)
[2018-01-21] MEDS: Acetaminophen/HYDROcodone 325-5 MG Tab PO PRN (08:55)
[2018-01-21] MEDS: Montelukast 10 MG Tab PO SCH (20:07)
[2018-01-21] MEDS: Melatonin 3 MG Tab PO PRN (20:07)
[2018-01-22] MEDS: Acetaminophen/oxyCODONE 325-5 MG Tab PO PRN ×3 (00:29→14:36)
[2018-01-22] MEDS: Multivitamins with Iron/Calcium/Folic Acid/Minerals Tab PO SCH (07:48)
[2018-01-22] MEDS: Calcium Carbonate/Vitamin D3 1250 MG-200 Unit Tab PO SCH (07:48)
[2018-01-22] MEDS: Lisinopril 2.5 MG Tab PO SCH (07:49)
[2018-01-22] MEDS: Cholecalciferol (Vitamin D3) 1,000 Unit Tab PO SCH (07:49)
[2018-01-22] MEDS: Aspirin 81 MG Tab.EC PO SCH (07:49)
[2018-01-22] MEDS: Pregabalin 25 MG Cap PO SCH ×3 (07:49→19:51)
[2018-01-22] MEDS: Oxybutynin 5 MG Tab.ER PO SCH (07:50)
[2018-01-22] MEDS: Hydrochlorothiazide 25 MG Tab PO SCH (07:50)
[2018-01-22] MEDS: Metoprolol Succinate 25 MG Tab.ER PO SCH (07:51)
[2018-01-22] MEDS: Polyethylene Glycol 3350 Powder 17 GM Packet PO SCH (07:53)
[2018-01-22] MEDS: Nicotine 21 MG/24 Hr Patch TRDERM SCH (07:54)
[2018-01-22] MEDS: Enoxaparin 30 MG/0.3 ML Syringe SUBCUT SCH (07:57)
[2018-01-22] MEDS: Acetaminophen/HYDROcodone 325-5 MG Tab PO PRN ×2 (11:18→17:22)
[2018-01-22] MEDS: Montelukast 10 MG Tab PO SCH (19:51)
[2018-01-22] MEDS: Melatonin 3 MG Tab PO PRN (21:13)
[2018-01-23] MEDS: Acetaminophen/oxyCODONE 325-5 MG Tab PO PRN ×3 (03:25→20:27)
[2018-01-23] MEDS: Oxybutynin 5 MG Tab.ER PO SCH (07:54)
[2018-01-23] MEDS: Hydrochlorothiazide 25 MG Tab PO SCH (07:54)
[2018-01-23] MEDS: Calcium Carbonate/Vitamin D3 1250 MG-200 Unit Tab PO SCH (07:54)
[2018-01-23] MEDS: Aspirin 81 MG Tab.EC PO SCH (07:55)
[2018-01-23] MEDS: Lisinopril 2.5 MG Tab PO SCH (07:55)
[2018-01-23] MEDS: Metoprolol Succinate 25 MG Tab.ER PO SCH (07:55)
[2018-01-23] MEDS: Cholecalciferol (Vitamin D3) 1,000 Unit Tab PO SCH (07:55)
[2018-01-23] MEDS: Pregabalin 25 MG Cap PO SCH ×3 (07:55→19:50)
[2018-01-23] MEDS: Multivitamins with Iron/Calcium/Folic Acid/Minerals Tab PO SCH (07:55)
[2018-01-23] MEDS: Nicotine 21 MG/24 Hr Patch TRDERM SCH (07:57)
[2018-01-23] MEDS: Polyethylene Glycol 3350 Powder 17 GM Packet PO SCH ×2 (07:57→14:42)
[2018-01-23] MEDS: Enoxaparin 30 MG/0.3 ML Syringe SUBCUT SCH (07:57)
[2018-01-23] MEDS: Acetaminophen/HYDROcodone 325-5 MG Tab PO PRN ×2 (08:54→16:17)
[2018-01-23] MEDS: Montelukast 10 MG Tab PO SCH (19:51)
[2018-01-23] MEDS: Melatonin 3 MG Tab PO PRN (20:27)
[2018-01-24] MEDS: Acetaminophen/oxyCODONE 325-5 MG Tab PO PRN ×4 (04:38→22:55)
[2018-01-24] MEDS: Lisinopril 2.5 MG Tab PO SCH (08:30)
[2018-01-24] MEDS: Nicotine 21 MG/24 Hr Patch TRDERM SCH (08:31)
[2018-01-24] MEDS: Hydrochlorothiazide 25 MG Tab PO SCH (08:32)
[2018-01-24] MEDS: Aspirin 81 MG Tab.EC PO SCH (08:33)
[2018-01-24] MEDS: Pregabalin 25 MG Cap PO SCH ×3 (08:33→22:56)
[2018-01-24] MEDS: Calcium Carbonate/Vitamin D3 1250 MG-200 Unit Tab PO SCH (08:33)
[2018-01-24] MEDS: Multivitamins with Iron/Calcium/Folic Acid/Minerals Tab PO SCH (08:34)
[2018-01-24] MEDS: Cholecalciferol (Vitamin D3) 1,000 Unit Tab PO SCH (08:35)
[2018-01-24] MEDS: Oxybutynin 5 MG Tab.ER PO SCH (08:35)
[2018-01-24] MEDS: Enoxaparin 30 MG/0.3 ML Syringe SUBCUT SCH (08:35)
[2018-01-24] MEDS: Metoprolol Succinate 25 MG Tab.ER PO SCH (08:36)
[2018-01-24] MEDS: Polyethylene Glycol 3350 Powder 17 GM Packet PO SCH (08:36)
--- NOTE | 2018-01-24 09:09 | PN ---
Progress Note for REN BRITTON Date: 01/24/2018 Room #: VM.218 SUBJECTIVE: The patient is slowly getting stronger. Her ended up getting admitted yesterday, and she does not have her hospital bed in place at home, so she is quite concerned about discharge plan. She does have an appointment today with Orthopedics in [place]. OBJECTIVE: Vital Signs: Her temperature is 36.7, pulse 68, blood pressure is 128/64, respirations are 18, and sats are 94%. General: She is alert and pleasant to visit with. Skin: [place], warm, and dry. Otherwise, physical exam was not done today. IMPRESSION: 1. Right tibia fracture. 2. Hyponatremia. 3. Hypertension. PLAN: We will have the patient talk with Valet Cashier about discharge plans. We will repeat her blood work tomorrow in anticipation of her getting ready to be able to be discharged. She was instructed on Lovenox shots, because she will need to continue those as long as she is nonweightbearing. Her pain also does seem to be controlled, which is good. Her use of Rosie has been on a regular basis. The oxycodone had been given at 4 this morning in anticipation of her trip to [place] and then has not been given for a while. GM01/24/2018 08:34:19 MODL: 01/24/2018 09:01:40 /[id number]
[2018-01-24] MEDS: Montelukast 10 MG Tab PO SCH (19:50)
[2018-01-24] MEDS: Acetaminophen/HYDROcodone 325-5 MG Tab PO PRN (19:53)
[2018-01-25] MEDS: Acetaminophen/HYDROcodone 325-5 MG Tab PO PRN ×3 (01:35→18:13)
[2018-01-25] MEDS: Acetaminophen/oxyCODONE 325-5 MG Tab PO PRN ×3 (06:46→21:03)
[2018-01-25 06:56] LABS: CHLORIDE,CL 97 mmol/L (98-107); SODIUM,NA 133 mmol/L (136-145)
[2018-01-25] MEDS: Polyethylene Glycol 3350 Powder 17 GM Packet PO SCH (07:56)
[2018-01-25] MEDS: Aspirin 81 MG Tab.EC PO SCH (07:57)
[2018-01-25] MEDS: Oxybutynin 5 MG Tab.ER PO SCH (07:57)
[2018-01-25] MEDS: Enoxaparin 30 MG/0.3 ML Syringe SUBCUT SCH (07:57)
[2018-01-25] MEDS: Cholecalciferol (Vitamin D3) 1,000 Unit Tab PO SCH (07:57)
[2018-01-25] MEDS: Pregabalin 25 MG Cap PO SCH ×3 (07:57→20:23)
[2018-01-25] MEDS: Lisinopril 2.5 MG Tab PO SCH (07:57)
[2018-01-25] MEDS: Hydrochlorothiazide 25 MG Tab PO SCH (07:58)
[2018-01-25] MEDS: Metoprolol Succinate 25 MG Tab.ER PO SCH (07:58)
[2018-01-25] MEDS: Multivitamins with Iron/Calcium/Folic Acid/Minerals Tab PO SCH (07:59)
[2018-01-25] MEDS: Calcium Carbonate/Vitamin D3 1250 MG-200 Unit Tab PO SCH (07:59)
[2018-01-25] MEDS: Nicotine 21 MG/24 Hr Patch TRDERM SCH (07:59)
[2018-01-25] MEDS: Acetaminophen 325 MG Tab PO PRN (09:35)
--- NOTE | 2018-01-25 09:43 | PN ---
Progress Note for REN BRITTON Date: 01/25/2018 Room #: VM.218 SUBJECTIVE: The patient wanted to express her unhappiness with her having to take her trip to [place] yesterday to see Orthopedics to just have her tape removed from her incision. She also was seen by the [facility] and recommended to have a DEXA scan. She felt that this did not have to be done when she was still nonweightbearing and also expressed her unhappiness regarding this. The patient asked questions about going home with transitional care, home evaluations, therapies that are done while she is on transitional care, and pill administration while she is on transitional care at [facility]. I stated I do not know the exact details of those. I do state it would be good for her to have a home evaluation as that will be helpful when she does eventually go home. She comments that the nicotine patch is working right now for her. She is stressed as her was just hospitalized yesterday and transferred to [place] in [place]. OBJECTIVE: Vital Signs: Her temperature is 36.3, pulse 72, blood pressure is 106/65, respiratory rate is 20, saturations are 96%. Skin: [place], warm, and dry. Heart: Regular rate and rhythm without murmurs or bruits. Lungs: Clear to auscultation. Abdomen: Soft. Extremities: Right leg was not looked at today. LABORATORY DATA: Her lab today shows her hemoglobin improving to 11.7, white blood cell count 7.1. Sodium 133, potassium 3.8, creatinine 0.9, GFR greater than 60, glucose 84. IMPRESSION: 1. Right tibial fracture with deconditioning, improving. 2. Anemia, improving. 3. Hyponatremia, improving. 4. Nicotine addiction. 5. Osteoporosis. PLAN: The patient will meet with nursing home social worker today to discuss discharge planning as well as will meet with [facility]. I did encourage her to write on experience to the [facility] expressing her concern about how her discharge and followup appointments were made. The patient's blood pressure is noted to be a little bit lower today. However, during the day, it does go up to the 120s, so it is felt that we will leave her blood pressure medication the same. She is using less pain pills, which is good and she will go home on Lovenox until she is not nonweightbearing and we will inquire as to getting her set up for her DEXA scan that was ordered by the bone health specialist she saw yesterday at the clinic in [place]. GM01/25/2018 08:42:42 MODL: 01/25/2018 09:20:06 /[id number] MTDD
[2018-01-25] MEDS: Montelukast 10 MG Tab PO SCH (20:24)
[2018-01-25] MEDS: Melatonin 3 MG Tab PO PRN (21:02)
[2018-01-26] MEDS: Acetaminophen/HYDROcodone 325-5 MG Tab PO PRN ×3 (00:42→18:06)
[2018-01-26] MEDS: Calcium Carbonate/Vitamin D3 1250 MG-200 Unit Tab PO SCH (07:49)
[2018-01-26] MEDS: Aspirin 81 MG Tab.EC PO SCH (07:50)
[2018-01-26] MEDS: Hydrochlorothiazide 25 MG Tab PO SCH (07:52)
[2018-01-26] MEDS: Enoxaparin 30 MG/0.3 ML Syringe SUBCUT SCH (07:53)
[2018-01-26] MEDS: Pregabalin 25 MG Cap PO SCH ×3 (07:54→20:18)
[2018-01-26] MEDS: Oxybutynin 5 MG Tab.ER PO SCH (07:55)
[2018-01-26] MEDS: Polyethylene Glycol 3350 Powder 17 GM Packet PO SCH (07:55)
[2018-01-26] MEDS: Lisinopril 2.5 MG Tab PO SCH (07:56)
[2018-01-26] MEDS: Multivitamins with Iron/Calcium/Folic Acid/Minerals Tab PO SCH (07:58)
[2018-01-26] MEDS: Metoprolol Succinate 25 MG Tab.ER PO SCH (07:59)
[2018-01-26] MEDS: Cholecalciferol (Vitamin D3) 1,000 Unit Tab PO SCH (08:00)
[2018-01-26] MEDS: Nicotine 21 MG/24 Hr Patch TRDERM SCH (08:09)
[2018-01-26] MEDS: Acetaminophen/oxyCODONE 325-5 MG Tab PO PRN ×2 (14:50→21:07)
[2018-01-26] MEDS: Melatonin 3 MG Tab PO PRN (20:18)
[2018-01-26] MEDS: Montelukast 10 MG Tab PO SCH (20:18)
[2018-01-27] MEDS: Acetaminophen/oxyCODONE 325-5 MG Tab PO PRN ×2 (02:59→09:48)
[2018-01-27] MEDS: Acetaminophen/HYDROcodone 325-5 MG Tab PO PRN ×2 (06:51→12:00)
[2018-01-27] MEDS ORDERED: Enoxaparin 40 MG/0.4 ML Syringe SUBCUT SCH (08:00)
[2018-01-27] MEDS: Polyethylene Glycol 3350 Powder 17 GM Packet PO SCH (08:08)
[2018-01-27] MEDS: Pregabalin 25 MG Cap PO SCH ×2 (08:08→11:59)
[2018-01-27] MEDS: Calcium Carbonate/Vitamin D3 1250 MG-200 Unit Tab PO SCH (08:10)
[2018-01-27] MEDS: Oxybutynin 5 MG Tab.ER PO SCH (08:10)
[2018-01-27] MEDS: Aspirin 81 MG Tab.EC PO SCH (08:10)
[2018-01-27] MEDS: Cholecalciferol (Vitamin D3) 1,000 Unit Tab PO SCH (08:11)
[2018-01-27] MEDS: Multivitamins with Iron/Calcium/Folic Acid/Minerals Tab PO SCH (08:11)
[2018-01-27] MEDS: Lisinopril 2.5 MG Tab PO SCH (08:12)
[2018-01-27] MEDS: Hydrochlorothiazide 25 MG Tab PO SCH (08:12)
[2018-01-27] MEDS: Metoprolol Succinate 25 MG Tab.ER PO SCH (08:13)
[2018-01-27] MEDS: Nicotine 21 MG/24 Hr Patch TRDERM SCH (08:14)
--- NOTE | 2018-01-28 08:59 | DISCH ---
PRIMARY DIAGNOSES: 1. Deconditioning post right leg surgery. 2. Spiral tibial fracture, status post surgery on the right leg. 3. Mild anemia secondary to blood loss. 4. Hypertension. 5. Chronic obstructive pulmonary disease. 6. Nicotine dependence. 7. Osteoporosis. 8. Chronic lumbar back pain with lumbar stenosis. 9. Allergic rhinitis. 10.Charcot joint of foot. 11.Gait imbalance. 12.Mixed incontinence. 13.Traumatic ulcer on right knee with reoccurrence. SUMMARY OF ADMIT HISTORY AND PHYSICAL: The patient had a fall at home on 01/07/2018, when getting up to stand. She had a spiral fracture of her tibia. She was sent to [place]. She underwent surgery the next day. The surgery was unremarkable other than hemoglobin dropped to 10.9. The patient came here for rehab therapy, was admitted on 01/11/2018. The patient had to be nonweightbearing for 6 weeks. PHYSICAL EXAMINATION ON ADMISSION: VITAL SIGNS: Her weight 90.7 kilos. Her blood pressure is 135/67, sats are 97%. HEART: Regular rate and rhythm without murmurs or bruits. LUNGS: Clear to auscultation. EXTREMITIES: Right leg was dressed with Matthew wrap above her knee. Traumatic ulcer to right knee cap improve, butterfly shaped 2x3 cm, medial aspect to subcuticular tissue, good granulation tissue, no erythema. Continue optiforam type dressing. SUMMARY OF SWING BED COURSE: The patient was here. She received physical therapy for strengthening and ability to learn how to transfer and walking on leg. She also received some occupational therapy with ADLs. To note, the patient did have problems with frequency of bladder, so she was started on oxybutynin as it was made certain that she did not have a bladder infection. Her hemoglobin was monitored, and on 01/12/2018, it was 11.0, by 01/25, it was up to 11.7. The patient's blood pressure was noted to have dropped while she was here, probably due to probably not smoking, so her dose of lisinopril and her dose of hydrochlorothiazide were reduced. The patient did go back and was seen by Orthopedics on 01/24/2018, they had removed her outer tape beyond her incision and some vicente. She had also met with the [facility] and they had wanted to get a DEXA scan. They had recommended some change of treatment for the patient; however, I do not have those recommendations available at the hospital to me. The patient's dose of Lovenox actually was 30 mg while she was here, but at discharge it actually after review from pharmacy should be up to 40 mg. The patient did have some mild hyponatremia while she was here, which is chronic for her. It was 132 on admit, went down to 130, was up to 133 by 01/25/2018. Potassium was 3.8, creatinine was 0.9, GFR greater than 60. Her blood sugars were excellent at 84. She did have an albumin level on 01/21, it was 2.5. The patient did recently have an increase of her Lyrica to help with pain control. Also, she had the addition of oxycodone to help with pain control as well. MEDICATIONS AT DISCHARGE: Aspirin 81 mg 1 pill daily; Singulair 10 mg 1 pill at bedtime; metoprolol-XL 25 mg 1 pill daily; Flonase 2 sprays daily p.r.n.; Tylenol 325 two pills every 6 hours as needed; vitamin D 1000 units 1 pill daily; senna Plus 2 pills twice a day; calcium carbonate 500 mg, she takes 1250 mg daily; multivitamin 1 pill daily; calcium with vitamin D, Caltrate 1 pill daily (we will need to clarify about redundancy of medication); nicotine patch 21 mg daily; [place] 325/5 one q.i.d. p.r.n., dispensed 30 pills; Percocet 5/325 one pill q.i.d. p.r.n. severe pain, dispensed 30 pills; Lovenox 40 mg subcu daily; hydrochlorothiazide 12.5 mg daily; milk of magnesia 30 mils daily p.r.n.; melatonin 6 mg at bedtime as needed, oxybutynin extended release 5 mg 1 pill daily; MiraLAX 1 packet daily; Lyrica 75 mg 1 pill 3 times a day; and lisinopril 2.5 mg daily. DISCHARGE PLAN: The patient will follow up to see me in 2 weeks' time. The patient will keep Ortho appointments. The patient does have a DEXA scan that is pending. The patient is to be nonweightbearing on her right leg. She will have an Optifoam dressing on her right kneecap to promote wound healing and can be changed every 3 days or as needed. The patient had a [id number] evaluation today for need for home health. The patient is homebound as she is nonweightbearing on her 1 leg. She has gait instability. She would rely on other people to bring her to appointments because she would need to be in a wheelchair. The patient needs supervision for continued transfers, therapies with upper body strengthening, and eventually when she can weightbear she will need therapy when ortho allows her to do that. She will also need Occupational Therapy to work with dressing, self-cares, and grooming. I will be monitoring her progress. The patient chooses [facility] as her home health agency. The patient will be going to assisted living for transitional care from the hospital because her who is her primary caregiver is currently hospitalized and undergoing medical workup. The patient does designate do not resuscitate, do not intubate code level status. Her diet will be regular. GM01/27/2018 08:38:34 MODL: 01/28/2018 05:18:16 /[id number] MTDDaniel
== END 2018-01-27 13:51 | disposition home health service (06) | DRG 560 ==
LOC: VM.MS 11:30
PROVIDERS: ADMIT Family Medicine; ATTEND Family Medicine
DX: S82.241D Displaced spiral fracture of shaft of right tibia, subsequent encounter for closed fracture with routine healing (principal); A52.16 Charcot's arthropathy (tabetic); E87.1 Hypo-osmolality and hyponatremia; I95.9 Hypotension, unspecified; R53.1 Weakness; W19.XXXD Unspecified fall, subsequent encounter; D50.0 Iron deficiency anemia secondary to blood loss (chronic); I10 Essential (primary) hypertension; J44.9 Chronic obstructive pulmonary disease, unspecified; F17.210 Nicotine dependence, cigarettes, uncomplicated; M81.0 Age-related osteoporosis without current pathological fracture; G89.29 Other chronic pain; M48.061 Spinal stenosis, lumbar region without neurogenic claudication; J30.9 Allergic rhinitis, unspecified; R26.89 Other abnormalities of gait and mobility; I73.9 Peripheral vascular disease, unspecified; N39.46 Mixed incontinence; Z88.8 Allergy status to other drugs, medicaments and biological substances; Z79.82 Long term (current) use of aspirin; Z79.899 Other long term (current) drug therapy
CPT/HCPCS: 36415; 80048; 80053; 81001; 85025; 97110-GP; 97161-GP; 97165-GO; 97530-GP; A9270-GY; J1650

== ENCOUNTER 2020-08-15 06:52 | Day surgery (SDC) | payer MEDICARE, OTHER ==
[~2020-08-15 06:52] MED LIST: Lactated Ringers 1,000 ML IV SCH
[2020-08-15] MEDS: Sodium Chloride 0.9% 10 ML Syringe FLUSH PRN ×3 (07:49→07:51)
[2020-08-15] MEDS ORDERED: Citric Acid/Sodium Citrate Solution 30 ML Cup PO ONE (08:16)
[2020-08-15] MEDS ORDERED: fentaNYL 100 MCG/2 ML SDV ONE (08:26)
[2020-08-15] MEDS ORDERED: Propofol 200 MG/20 ML SDV ONE (08:26)
--- NOTE | 2020-08-16 14:32 | OR ---
DATE OF SURGERY: 08/15/2020. REFERRING PROVIDER: Ramona Yu MD PRE-OPERATIVE DIAGNOSES: 1. Elevated CEA tumor marker. The patient states she did just have CT scan of abdomen and pelvis done as well and was told no masses or evidence of metastatic disease seen. 2. History of colon cancer, status post colon resection in 1980. 3. History of colon polyps. 4. Positive family history of colon cancer. POST-OPERATIVE DIAGNOSES: 1. Two polyps removed, both using hot snare, neither one being worrisome looking. a. 7 mm polyp at 25 cm. b. 4 mm polyp at 12 cm. 2. Mild hemorrhoids. 3. Normal-appearing distal ileum. PROCEDURE: Colonoscopy with polypectomy x2 using hot snare. SURGEON: Black Bunn M.D. ANESTHESIA: Monitored anesthesia care. BOWEL PREP: Good. Olivia is an 84-year-old female who was brought to the endoscopy suite after discussing risks and benefits of the procedure. Informed consent was obtained for conscious sedation and colonoscopy with or without biopsy and/or polypectomy. We also discussed possibility of missed lesions. Pre-procedure exam was unremarkable. IV, oxygen, and monitors were placed. The patient was placed in the left lateral decubitus position. Sedation was administered and a digital rectal exam was performed and unremarkable. Colonoscope was passed into the rectum and slowly advanced all the way to the cecum. Cecum was viewed and photographed. Distal ileum was intubated and this was normal in appearance. The colonoscope was slowly withdrawn and the mucosa was closely observed in a direct circumferential manner. The ascending colon was unremarkable. The transverse colon was unremarkable. The descending colon was unremarkable. Sigmoid colon revealed 7 mm polyp at 25 cm, removed with hot snare. There was also a 4 mm polyp at 12 cm removed with hot snare. Retroflexion was performed. Rectal mucosa revealed some mild hemorrhoids. Scope was removed. The patient tolerated the procedure well. The patient was monitored until that baseline status. Discharge instructions were reviewed and the patient was discharged in good condition. COMPLICATIONS: None. TOTAL TIME: 19 minutes. ESTIMATED BLOOD LOSS: None. RECOMMENDATIONS/FOLLOW-UP: We will await results of path report and send letter with results. Given her age, she can likely be done with colonoscopies unless something surprising comes back on path report. I will have the patient hold her aspirin for 3 days to limit any chance of bleeding from polypectomy sites. I would like to kindly thank Dr. Yu for this referral. DMB: 08/15/2020 11:25:04 MODL: 08/15/2020 18:26:22 /[id number]
== END 2020-08-15 10:40 | disposition home or self-care (01) ==
LOC: VM.SDS 06:52
PROVIDERS: ATTEND Family Medicine
DX: Z12.11 Encounter for screening for malignant neoplasm of colon (principal); D12.5 Benign neoplasm of sigmoid colon; K64.9 Unspecified hemorrhoids; J43.1 Panlobular emphysema; J30.1 Allergic rhinitis due to pollen; I10 Essential (primary) hypertension; F33.0 Major depressive disorder, recurrent, mild; M48.061 Spinal stenosis, lumbar region without neurogenic claudication; M81.0 Age-related osteoporosis without current pathological fracture; N39.46 Mixed incontinence; Z01.812 Encounter for preprocedural laboratory examination; Z20.828 Contact with and (suspected) exposure to other viral communicable diseases; F17.210 Nicotine dependence, cigarettes, uncomplicated; M89.49 Other hypertrophic osteoarthropathy, multiple sites; I73.9 Peripheral vascular disease, unspecified; R73.9 Hyperglycemia, unspecified; K21.9 Gastro-esophageal reflux disease without esophagitis; D50.9 Iron deficiency anemia, unspecified; Z98.84 Bariatric surgery status; R26.9 Unspecified abnormalities of gait and mobility; A52.16 Charcot's arthropathy (tabetic); G89.29 Other chronic pain; Z86.010 Personal history of colon polyps; Z98.890 Other specified postprocedural states; Z79.899 Other long term (current) drug therapy; Z79.82 Long term (current) use of aspirin; Z68.41 Body mass index [BMI] 40.0-44.9, adult; Z80.0 Family history of malignant neoplasm of digestive organs; Z90.49 Acquired absence of other specified parts of digestive tract
CPT/HCPCS: 00811; 88305; A9270-GY; J2704; J3010; J7120; U0002

== ENCOUNTER 2021-06-02 11:44 | Inpatient (IN) | payer OTHER, MEDICARE ==
[2021-06-02] MEDS ORDERED: Diphtheria,Pertussis(Acell),Tetanus Vaccine 0.5 ML Syringe IM ONE (12:24)
[2021-06-02] MEDS ORDERED: Oxymetazoline 0.05% Nasal Spray 30 ML Bottle NAS ONE (12:37)
--- NOTE | 2021-06-02 12:51 | PCM.EKG ---
#1 Interpretation EKG Date: 06/02/21 Time: 12:20 Rhythm: NSR Rate (Beats/Min): 66 [place]: Normal P-Wave: Present QRS: Normal ST-T: Normal QT: Normal Comparison: No Change
--- NOTE | 2021-06-02 12:51 | EDM.PDOC ---
ED HPI GENERAL MEDICAL PROBLEM - General Chief Complaint: General Stated Complaint: FELL ON SIDEWALK Time Seen by Provider: 06/02/21 11:50 Source of Information: Reports: Patient History Limitations: Reports: No Limitations - History of Present Illness INITIAL COMMENTS - FREE TEXT/NARRATIVE: Patient comes emergency department today by ambulance after a fall in town. The patient is almost legally blind with a history of macular degeneration. She walks with a walker. She tripped on something and fell on the ground. She did strike her forehead. There was no loss conscious. She has no head neck or back pain. No visual acuity changes. No diplopia. She has had some episodes of lightheadedness over the past couple of weeks following an acute sinus infection that she was placed on Bactrim for. She does not use any saline nasal rinse nor does she take her Flonase as she is supposed to chronically. She also recently started Diflucan for oral thrush. Her symptoms of the lightheadedness started about a week ago when she started her therapy for her sinus infection. She has had no chest pain no shortness of breath or difficulty breathing. No focalized neurological weakness or generalized weakness. No palpitations vertigo or syncope. No abdominal pain nausea or vomiting. No hematuria dysuria urinary frequency. No black or tarry stools. No fever no chills. - Related Data Allergies Allergy/AdvReac Type Severity Reaction Status Date / Time No Known Allergies Allergy Verified 06/02/21 11:57 Home Meds: Home Meds Aspirin [Halfprin] 81 mg PO DAILY 01/06/18 [History] Cholecalciferol (Vitamin D3) [Vitamin D3] 2,000 unit PO DAILY 01/11/18 [History] Fluticasone Propionate [Flonase] 2 spray INH BID 01/11/18 [History] Metoprolol Succinate [Toprol XL] 25 mg PO DAILY 01/11/18 [History] Montelukast [Singulair] 10 mg PO BEDTIME PRN 01/11/18 [History] Nicotine [Nicotine Patch] 21 mg TD DAILY 01/11/18 [History] Sennosides/Docusate Sodium [Senna-Docusate Sodium Tablet] 1 tab PO BID PRN 01/11/18 [History] Albuterol Sulfate [Albuterol Sulfate Hfa] 2 puff IH Q4HR PRN 08/08/20 [History] Fluticasone/Vilanterol [Breo Ellipta 100-25 MCG Inhalation Kit] 1 puff IH DAILY 08/08/20 [History] Mirabegron [Myrbetriq] 25 mg PO DAILY 08/08/20 [History] Nicotine Polacrilex [Nicotine Gum] 1 piece PO Q8HR PRN 08/08/20 [History] Oxybutynin [Oxybutynin ER] 10 mg PO DAILY 08/08/20 [History] Pregabalin [Lyrica] 75 mg PO BID 08/08/20 [History] Sertraline [Zoloft] 50 mg PO DAILY 08/08/20 [History] Zoledronic Acid/Mannitol-Water [Zoledronic Acid 5 mg/100 ml] 5 mg IV ASDIRECTED 08/08/20 [History] lisinopriL [Prinivil] 2.5 mg PO DAILY 08/08/20 [History] Past Medical History HEENT History: Reports: Allergic Rhinitis, Cataract, Macular Degeneration Other HEENT History: pseudophakia. presbyopia. myopia. astigmatism. posterior vitreous detachment. epiretinal membrane of right eye. vitreous floaters of left eye Cardiovascular History: Reports: Hypertension, Syncope Other Cardiovascular History: peripheral vascular disease Respiratory History: Reports: Other (See Below) Other Respiratory History: emphysema. sinus headache Gastrointestinal History: Reports: Colon Polyp, GERD, Hiatal Hernia Other Gastrointestinal History: blind loop syndrome Genitourinary History: Reports: Urinary Incontinence Musculoskeletal History: Reports: Back Pain, Chronic, Osteoarthritis, Osteoporosis Other Musculoskeletal History: spinal stenosis. charcot's joint of left foot. gait abnormality. contusion of right knee. bakers cyst. kyphosis. scoliosis Other Neuro History: insomnia. chronic paroxysmal hemicrania Psychiatric History: Reports: Depression Endocrine/Metabolic History: Reports: Obesity/BMI 30+, Vitamin D Deficiency Other Endocrine/Metabolic History: hyperglycemia. hyponatremia Hematologic History: Reports: Anemia, Blood Transfusion(s), Iron Deficiency Other Hematologic History: inadequate iron intake Oncologic (Cancer) History: Reports: Colon Dermatologic History: Reports: Cellulitis, Urticaria Other Dermatologic History: actinic keratosis. atopic dermatitis. pigmented skin lesion. tramatic ulcer - Past Surgical History HEENT Surgical History: Reports: Cataract Surgery Other HEENT Surgeries/Procedures: YAG capsulotomy. intravitreal inj - left - x30 Other Cardiovascular Surgeries/Procedures: vascular bypass - 01/03/2015 GI Surgical History: Reports: Appendectomy, Cholecystectomy, Colon, Colonoscopy, Lysis of Adhesions Other GI Surgeries/Procedures: gastric bypass - 1980. elevated CEA Female Surgical History: Reports: Hysterectomy Musculoskeletal Surgical History: Reports: Amputation, Carpal Tunnel Other Musculoskeletal Surgeries/Procedures:: wrist fx sx. foot sx. ankle fx surgery. knee surgery. IM nailing - 01/07/2018 Social & Family History - Family History Family Medical History: No Pertinent Family History - Tobacco Use Tobacco Use Status *Q: Unknown Ever Used Tobacco - Caffeine Use Caffeine Use: Reports: Coffee ED ROS GENERAL - Review of Systems Review Of Systems: Comprehensive ROS is negative, except as noted in HPI. ED EXAM, GENERAL - Physical Exam Exam: See Below Exam Limited By: No Limitations General Appearance: Alert, WD/WN, No Apparent Distress Eye Exam: Bilateral Eye: EOMI, PERRL Ears: No: Normal Canal (Bilateral canals occluded with very old hard earwax.) Nose: Nasal Swelling (There is quite a bit of nasal boggy pale galindo sinuses with clear rhinorrhea. There is little to no air passage identified.), Clear Rhinorrhea Throat/Mouth: Normal Inspection, Normal Lips, Normal Teeth, Normal Oropharynx, Normal Voice, No Airway Compromise Head: Normocephalic. No: Atraumatic (There is a small abrasion above the left upper lateral eyebrow. There is no bony deformity subcutaneous emphysema or crepitus.) Neck: Normal Inspection, Supple, Non-Tender, Full Range of Motion. No: Tender Lateral, Tender Midline Respiratory/Chest: No Respiratory Distress, Lungs Clear, Normal Breath Sounds (Decreased throughout history of COPD), No Accessory Muscle Use, Chest Non- Tender Cardiovascular: Normal Peripheral Pulses, Regular Rate, Rhythm Peripheral Pulses: 2+: Radial (L), Radial (R), Posterior Tibial (L), Posterior Tibial (R), Dorsalis Pedis (L), Dorsalis Pedis (R) GI/Abdominal: Normal Bowel Sounds, Soft, Non-Tender, No Distention, Pelvis Stable (Female) Exam: Deferred Rectal (Female) Exam: Deferred Back Exam: Normal Inspection, Full Range of Motion. No: Paraspinal Tenderness, Vertebral Tenderness Extremities: Normal Range of Motion. No: Normal Inspection (Small superficial abrasion to the distal anterior aspect of the tib fib region. More like a skin tear. ) Neurological: Alert, Oriented, CN II-XII Intact, Normal Cognition, Normal Reflexes, No Motor/Sensory Deficits Psychiatric: Normal Affect, Normal Mood Skin Exam: Warm, Dry, Normal Color Course - Vital Signs Last Recorded V/S: Last Vital Signs Temp 98.3 F 06/02/21 11:46 Pulse 70 06/02/21 11:46 Resp 20 06/02/21 11:46 BP 121/89 06/02/21 11:46 Pulse Ox 90 L 06/02/21 11:46 - Orders/Labs/Meds Orders: Active Orders 24 hr Category Date Time Status Admission Status [Patient Status] [ADT] Routine ADT 06/02/21 13:13 Ordered EKG 12 Lead [EKG Documentation Completion] [RC] STAT Care 06/02/21 12:18 Active Vaccines to be Administered [RC] PER UNIT ROUTINE Care 06/02/21 12:24 Active Sodium Chloride 0.9% @ 100 MLS/HR(1000ml) Med 06/02/21 13:15 Ordered Sodium Chloride 0.9% [Normal Saline] 1,000 ml IV ASDIRECTED Sodium Chloride 0.9% [Saline Flush] Med 06/02/21 13:04 Ordered 10 ml FLUSH ASDIRECTED PRN Peripheral IV Insertion Adult [OM.PC] Stat Oth 06/02/21 13:04 Ordered Medication Orders Sodium Chloride (Normal Saline) 1,000 mls @ 100 mls/hr IV ASDIRECTED MIKAELA Sodium Chloride (Sodium Chloride 0.9% 10 Ml Syringe) 10 ml FLUSH ASDIRECTED PRN PRN Reason: Keep Vein Open Labs: Laboratory Tests 06/02/21 06/02/21 06/02/21 Range/Units 12:27 12:27 12:46 WBC 7.3 (4.0-10.0) x10^3/uL RBC 4.51 (4.00-5.50) x10^6/uL Hgb 13.6 D (12.0-16.0) g/dL Hct 39.8 (33.0-47.0) % MCV 88.2 D (78.0-93.0) fL MCH 30.2 (26.0-32.0) pg MCHC 34.2 (32.0-36.0) g/dL RDW Coeff of Marleny 14.4 (10.0-15.0) % Plt Count 236 D (130-400) x10^3/uL Neut % (Auto) 69.3 (50.0-80.0) % Lymph % (Auto) 19.8 L (25.0-50.0) % Sumner % (Auto) 8.9 (2.0-11.0) % Eos % (Auto) 1.6 (0.0-4.0) % Baso % (Auto) 0.4 (0.2-1.2) % Sodium 129 L* (136-145) mmol/L Potassium 5.2 H (3.5-5.1) mmol/L Chloride 97 L (98-107) mmol/L Carbon Dioxide 25 (21-32) mmol/L Anion Gap 12.2 (5-15) mmol/L BUN 21 H (7-18) mg/dL Creatinine 1.3 H (0.55-1.02) mg/dL Est Cr Clr Drug Dosing TNP Estimated GFR (MDRD) 39 Glucose 96 (70-99) mg/dL Calcium 8.3 L (8.5-10.1) mg/dL Corrected Calcium 9.0 (8.5-10.1) mg/dL Magnesium 1.9 (1.8-2.4) mg/dL Total Bilirubin 0.1 L (0.2-1.0) mg/dL AST 17 (15-37) U/L ALT 16 (14-59) U/L Alkaline Phosphatase 101 (46-116) U/L Troponin I High Sens 6 (<=51) ng/L Total Protein 7.1 (6.4-8.2) g/dL Albumin 3.1 L (3.4-5.0) g/dL Globulin 4.0 Albumin/Globulin Ratio 0.78 Urine Color Dark yellow H (YELLOW) Urine Appearance Cloudy H (CLEAR) Urine pH 5.5 (5.0-8.0) Ur Specific [place] >=1.030 Urine Protein Negative (NEGATIVE) mg/dL Urine Glucose (UA) Negative (NEGATIVE) mg/dL Urine Ketones Negative (NEGATIVE) mg/dL Urine Occult Blood Negative (NEGATIVE) Urine Nitrite Negative (NEGATIVE) Urine Bilirubin Small H (NEGATIVE) Urine Urobilinogen 0.2 (0.2) EU/dL Ur Leukocyte Esterase Negative (NEGATIVE) Meds: Medications Generic Name Dose Route Start Last Admin Trade Name Freq PRN Reason Stop Dose Admin Sodium Chloride 1,000 mls @ 100 mls/hr 06/02/21 13:15 Normal Saline IV ASDIRECTED MIKAELA Sodium Chloride 10 ml 06/02/21 13:04 Sodium Chloride 0.9% 10 Ml Syringe FLUSH ASDIRECTED PRN Keep Vein Open Discontinued Medications Generic Name Dose Route Start Last Admin Trade Name Freq PRN Reason Stop Dose Admin Diphtheria/Tetanus/Acell Pertussis 0.5 ml 06/02/21 12:24 06/02/21 12:33 Diphtheria,Pertussis(Acell),Tetanus Vaccine 0.5 Ml Syringe IM 06/02/21 12:25 0.5 ml .ONCE ONE Administration Oxymetazoline HCl 1 ml 06/02/21 12:37 06/02/21 12:48 Oxymetazoline 0.05% Nasal Maxwell 30 Ml Bottle BERTHA 06/02/21 12:38 1 ml ONETIME ONE Administration - Re-Assessments/Exams Free Text/Narrative Re-Assessment/Exam: 06/02/21 12:57 Labs are drawn. EKG is unremarkable from previous. I did gently remove bilateral canal earwax with a curette. Patient tolerated procedure well. The TMs are clear bilaterally. No effusion erythema. 06/02/21 13:20 CBC is unremarkable. CMP with a sodium of 129, potassium 5.2 chloride 97, BUN 21 creatinine 1.3 up from a baseline of 0.8. Magnesium is normal. Liver enzymes are unremarkable. Urinalysis is quite concentrated no leukocytes nitrites. IV established normal saline 250 mill bolus then 100 mils an hour. I am not sure what is causing her hyponatremia at this time. Her dizziness could be related to her dehydration as well as her acute kidney injury which could most likely be from the recent administration of Bactrim for a sinus infection. She did have relief with oxymetazoline in the emergency department. I think is highly important for her to get back on doing nasal saline rinses as well as using her Flonase on a daily basis to help with her chronic sinusitis. This is the mainstay of therapy for sinusitis. I called and spoke with Adolfo GOLDMAN who is on for the hospital. HPI ER course findings and concerns were relayed to him verbally over the phone. He accepted the patient into his care here in [place]. I discussed the plan of care with the patient. She is comfortable with this plan and her questions answered. 06/02/21 13:24 CALCULATED SERUM osmolality is 271 Departure - Departure Time of Disposition: 13:15 Disposition: Admitted As Inpatient 67 Clinical Impression: Hyponatremia with decreased serum osmolality, Hyperkalemia, RONALDO (acute kidney injury), Dehydration Sinusitis Qualifiers: Sinusitis location: unspecified location Chronicity: unspecified Qualified Code(s): J32.9 - Chronic sinusitis, unspecified - Discharge Information Forms: ED Department Discharge Sepsis Event Note (ED) - Evaluation Sepsis Screening Result: No Definite Risk - Focused Exam Vital Signs: Vital Signs Temp Pulse Resp BP Pulse Ox 06/02/21 11:46 98.3 F 70 20 121/89 90 L - My Orders Last 24 Hours: My Active Orders 06/02/21 12:18 EKG 12 Lead [EKG Documentation Completion] [RC] STAT 06/02/21 12:24 Vaccines to be Administered [RC] PER UNIT ROUTINE 06/02/21 13:04 Sodium Chloride 0.9% [Saline Flush] 10 ml FLUSH ASDIRECTED PRN Peripheral IV Insertion Adult [OM.PC] Stat 06/02/21 13:13 Admission Status [Patient Status] [ADT] Routine 06/02/21 13:15 Sodium Chloride 0.9% @ 100 MLS/HR(1000ml) Sodium Chloride 0.9% [Normal Saline] 1,000 ml IV ASDIRECTED - Assessment/Plan Last 24 Hours: My Active Orders 06/02/21 12:18 EKG 12 Lead [EKG Documentation Completion] [RC] STAT 06/02/21 12:24 Vaccines to be Administered [RC] PER UNIT ROUTINE 06/02/21 13:04 Sodium Chloride 0.9% [Saline Flush] 10 ml FLUSH ASDIRECTED PRN Peripheral IV Insertion Adult [OM.PC] Stat 06/02/21 13:13 Admission Status [Patient Status] [ADT] Routine 06/02/21 13:15 Sodium Chloride 0.9% @ 100 MLS/HR(1000ml) Sodium Chloride 0.9% [Normal Saline] 1,000 ml IV ASDIRECTED
[2021-06-02 12:58] LABS: CHLORIDE,CL 97 mmol/L (98-107)
[2021-06-02 13:02] LABS: ANION GAP 12.2 mmol/L (5-15); SODIUM,NA 129 mmol/L (136-145)
[2021-06-02] MEDS ORDERED: Sodium Chloride 0.9% 10 ML Syringe FLUSH PRN (13:04)
[2021-06-02] MEDS: Sodium Chloride 0.9% 1,000 ML IV SCH ×2 (13:32→21:56)
[2021-06-02] MEDS ORDERED: Sodium Chloride 0.9% 1,000 ML IV SCH (14:00)
[2021-06-02] MEDS ORDERED: Albuterol 0.083% 2.5 MG/3 ML Neb Soln INH PRN (15:17)
[2021-06-02] MEDS ORDERED: Hypromellose 0.3% Ophth Soln 15 ML Bottle EYEBOTH PRN (15:17)
[2021-06-02] MEDS ORDERED: Montelukast 10 MG Tab PO PRN (15:25)
[2021-06-02] MEDS: Nicotine 7 MG/24 Hr Patch TRDERM SCH (16:09)
--- NOTE | 2021-06-02 19:02 | HP ---
CHIEF COMPLAINT: Fall. HISTORY OF PRESENT ILLNESS: The patient presented to the emergency room at [facility] via EMS after she had fallen while walking out of a store. The patient did strike her forehead, right elbow, and left shoulder on cement. The patient states that she tripped on something on the ground. The patient denies any LOC. The patient denies any headache. The patient complains of dizziness and lightheadedness. The patient denies any neck or back pain. The patient was recently seen at [facility] in [place] last week and diagnosed with a sinus infection. The patient was started on Bactrim as well as Diflucan for thrush. The patient states she is trying to stay well hydrated. The patient denies any chest wall pain. No shortness of breath. No cough. The patient denies any numbness, tingling, or paresthesia to any extremity. The patient denies any low back pain. The patient states that her dizziness and lightheadedness started about a week ago when she was started on Bactrim for her sinus infection. The patient denies any visual field disturbances. No diplopia. PAST MEDICAL HISTORY: 1. Malignant neoplasm of the colon. 2. Essential hypertension. 3. Peripheral vascular disease. 4. Panlobular emphysema. 5. History of hyponatremia. 6. History of hyperglycemia. 7. Vitamin D deficiency. 8. Major depressive disorder. 9. Iron deficiency anemia. 10.Primary insomnia. 11.GERD. 12.Mixed incontinence. 13.Charcot joint of left foot, nondiabetic. 14.Osteoporosis. PAST SURGICAL HISTORY: 1. Right fifth toe amputation. 2. Right fourth joint amputation, foot. 3. Right tibia fracture. FAMILY HISTORY: Noncontributory. SOCIAL HISTORY: The patient is a current cigarette smoker. The patient denies any alcohol use. No illegal drug use. The patient is . The patient currently lives in a [facility]. MEDICATIONS: 1. Bactrim DS one tablet p.o. twice daily for 7 days. 2. Diflucan 100 mg one tablet p.o. for 10 days. 3. Artificial Tears 1.4% solution one drop every 4 hours as needed to both eyes. 4. Oxybutynin 10 mg one tablet p.o. daily. 5. Trazodone 100 mg one tablet p.o. at bedtime. 6. Sertraline 100 mg one tablet p.o. daily. 7. Pregabalin 75 mg one tablet p.o. twice daily. 8. Cholecalciferol 2000 international units one capsule p.o. daily. 9. Albuterol HFA 108 mcg two puffs every 4 hours as needed. 10.Fluticasone 50 mcg two sprays into each nostril two times a day. 11.Breo Ellipta 100/25 mcg one puff one time a day. 12.Metoprolol succinate 25 mg one tablet p.o. daily. 13.Montelukast 10 mg one tablet p.o. at bedtime as needed. 14.Reclast 5 mg/100 mL given IV yearly. 15.Lisinopril 2.5 mg one tablet p.o. daily. 16.Aspirin 81 mg one tablet p.o. daily. LABORATORY WORK: 1. CBC: White blood cell count 7.3, hemoglobin 13.6, hematocrit 39.8, platelets 236,000. 2. CMP: Sodium 129, potassium 5.2, chloride 97, BUN 21, creatinine 1.3, GFR 39, glucose 96, calcium 8.3, magnesium 1.9. AST 17, ALT 16, alkaline phosphatase 101, protein 7.1. 3. UA: Negative for infection. 4. [id number]. REVIEW OF SYSTEMS: Constitutional: Negative. Respiratory: Negative. Cardiac: Negative. Musculoskeletal: The patient complains of left shoulder pain which is new, right elbow pain which also is new. Skin: Abrasion to right elbow. Neurologic: Negative. PHYSICAL EXAMINATION: Vital Signs: Height 5 feet 2 inches, weight 222 pounds, temperature 97.3, pulse 63, blood pressure 150/76, respiratory rate 16, oxygen saturation 91% on room air. Skin: The patient has a superficial abrasion to the right elbow; abrasion to the left eyebrow; abrasion to right lower leg; rest of skin exam normal. Skin is warm and dry. Respiratory: Lungs are decreased throughout, otherwise clear. Cardiovascular: Regular rate and rhythm, no murmur. Musculoskeletal: Decreased range of motion of left shoulder due to pain; no left wrist or elbow pathology; no pops or clicks; the patient is tender around the posterior AC joint; no clavicle or scapula involvement. Neurologic: The patient is alert. The patient is oriented to person and place, but disoriented to time. No focal neurological deficits. ASSESSMENT: 1. Closed head injury without loss of consciousness. 2. Right elbow skin abrasion. 3. Left eyebrow abrasion. 4. Clinical dehydration. 5. Hyponatremia. 6. Malignant neoplasm of the colon. 7. Essential hypertension. 8. Peripheral vascular disease. 9. Panlobular emphysema. 10.History of hyponatremia. 11.History of hyperglycemia. 12.Vitamin D deficiency. 13.Iron deficiency anemia. 14.Charcot joint of left foot, nondiabetic. 15.Acute kidney injury. PLAN: 85-year-old female patient with the above medical history is admitted to the acute care floor at [facility] after she sustained a closed head injury without LOC, multiple abrasions, hyponatremia, acute kidney injury, and clinical dehydration. The patient will be gently rehydrated with normal saline. We will obtain x-ray of left shoulder to rule out any acute pathology. Continue home medications the same. Tylenol will be ordered for pain. Caution with narcotics in the elderly with head injury. JOLENE arredondo. Recheck laboratory work tomorrow morning. I do anticipate a stay greater than 48 hours due to the patient's recent falls and bilateral leg weakness found during interview. The patient is a code 2. The patient does wish to transfer to a higher level of care should the need arise. The patient did receive her Tdap in the emergency room. Check iron panel for any acute anemia. DVT prophylaxis, TEDs and early ambulation. No anticoagulation due to head injury. TB: 06/02/2021 17:32:39 MODL: 06/02/2021 18:56:05 /[id number]
[2021-06-02] MEDS: Pregabalin 25 MG Cap PO SCH (20:10)
[2021-06-02] MEDS: Fluticasone Propionate Nasal Spray 9.9 ML BOTTLE NASBOTH SCH (20:10)
[2021-06-02] MEDS: traZODone 50 MG Tab PO SCH (20:11)
[2021-06-02] MEDS: Acetaminophen 325 MG Tab PO PRN (20:18)
[2021-06-03] MEDS: Acetaminophen 325 MG Tab PO PRN ×3 (01:44→20:29)
[2021-06-03 06:42] LABS: ANION GAP 11.4 mmol/L (5-15)
[2021-06-03] MEDS ORDERED: Bisacodyl 10 MG Supp RECTAL PRN (07:54)
[2021-06-03] MEDS ORDERED: Magnesium Hydroxide 400 MG/5 ML Susp 30 ML Cup PO PRN (07:55)
--- NOTE | 2021-06-03 07:59 | CT ---
[id number] CT/CT Head WO IV EXAM: CT Head WO IV CLINICAL DATA: FALL LACERATION LEFT EYE COMPARISON STUDY: None FINDINGS: No intracranial hemorrhage, extra-axial fluid collection, mass, or acute ischemia. No hydrocephalus. Soft tissue contusion over the left supraorbital region. Calvarium intact. Paranasal sinus mucosal thickening. Hyperdense material in the ethmoid and frontal sinuses. In the absence of adjacent fracture, findings are most consistent with inspissated secretions. IMPRESSION: Small scalp contusion over the left orbit. No underlying fracture. No acute intracranial hemorrhage. Albaro Salas MD 06/03/21 0759 Thank you for allowing us to participate in the care of your patient.
[2021-06-03] MEDS ORDERED: Formoterol/Mometasone 100-5 MCG 8.8 GM Inhaler IH SCH (08:00)
[2021-06-03] MEDS: Sodium Chloride 0.9% 1,000 ML IV SCH (08:18)
[2021-06-03] MEDS: Pregabalin 25 MG Cap PO SCH ×2 (08:25→20:24)
[2021-06-03] MEDS: Oxybutynin 5 MG Tab.ER PO SCH (08:25)
[2021-06-03] MEDS: Aspirin 81 MG Tab.EC PO SCH (08:25)
--- NOTE | 2021-06-03 08:25 | PN ---
Progress Note for REN BRITTON Date: 06/03/2021 Room #: VM.203 SUBJECTIVE: This is patient's second hospital day after being admitted with frequent falls, hyponatremia. She is feeling better this morning. She does have some back pain which is chronic for her. Her throat is much better. She has little cough which is chronic for her as well. OBJECTIVE: Vital Signs: Patient's temperature is 36.8, pulse 62, blood pressure is down to 103/57, and sats are 92, respiratory rate 16. General: The patient is lying in bed. Her skin has some abrasions on them. HEENT: Her pharynx is resolved with her thrush. Heart: Regular rate and rhythm. Lungs: Have diminished breath sounds on bases. Abdomen: Soft. LABORATORY DATA: Today shows that her hemoglobin has dropped from 13.6 down to 12.9, which is felt to be dilutional. Her sodium is improved to 131, potassium is improved to 4.4, creatinine improved to 1.0, GFR improved to 53. Calcium is 7.5, but yesterday her corrected calcium was normal. Ferritin is normal at 37. LFTs normal. Albumin is slightly reduced at 7.3. Urine came back dark, specific gravity greater than 1.030. Head CT prelim report was normal shoulder xray was normal. IMPRESSION: 1. Frequent falls. 2. Hyponatremia, improved. 3. Acute kidney injury secondary to dehydration. 4. Chronic back pain. 5. Chronic obstructive pulmonary disease. 6. Blindness. 7. Charcot joint. 8. History of colon cancer. 9. Recent thrush. 10.Multiple abrasions. 11.Chronic obstructive pulmonary disease. PLAN: The patient will be given 1 more liter of IV fluids today and then will be saline locked. She will be seen by PT for evaluation as well as family was wondering about if she needs assessment for wheelchair. So, we will also have Physical Therapy assess her for wheelchair status. The patient also will have cognitive evaluation by OT. We will check orthostatic blood pressure and pulses. She will manage with Tylenol for her back pain. Also, she will need help with her bowels as well. Anticipate hopeful discharge tomorrow or possibly the next day depending on what is found with therapies and we will give her something to help with her bowels. GM06/03/2021 07:54:20 MODL: 06/03/2021 08:18:40 /[id number] MTDD
[2021-06-03] MEDS: Cholecalciferol (Vitamin D3) 25 MCG Tab PO SCH (08:26)
[2021-06-03] MEDS: Fluconazole 100 MG Tab PO SCH (08:26)
[2021-06-03] MEDS: Lisinopril 5 MG Tab PO SCH (08:26)
[2021-06-03] MEDS: Sertraline 100 MG Tab PO SCH (08:26)
[2021-06-03] MEDS: Metoprolol Succinate 25 MG Tab.ER PO SCH (08:27)
[2021-06-03] MEDS: Nicotine 7 MG/24 Hr Patch TRDERM SCH (08:28)
[2021-06-03] MEDS: Fluticasone Propionate Nasal Spray 9.9 ML BOTTLE NASBOTH SCH ×2 (08:32→20:25)
[2021-06-03] MEDS: Fluticasone-Salmeterol 55-14 MCG Powder Inhalent INH SCH ×2 (12:43→20:26)
--- NOTE | 2021-06-03 13:17 | CR ---
[id number] RAD/RAD Shoulder Left 2V Min Exam: RAD Shoulder Left 2V Min Indication:LEFT SHOULDER INJURY, LEFT SHOULDER PAIN, FALL. Comparison: No prior imaging for comparison. Discussion/Impression: Advanced glenohumeral osteoarthritis with joint space narrowing. Complete loss of subacromial interval resulting in [id number] articulation between the humeral head and glenoid. Mild acromioclavicular osteoarthritis. Diffuse bone demineralization. No radiographically evident fracture or dislocation. Albaro Salas MD 06/03/21 [id number] Thank you for allowing us to participate in the care of your patient.
[2021-06-03] MEDS: traZODone 50 MG Tab PO SCH (20:24)
[2021-06-04] MEDS: Acetaminophen 325 MG Tab PO PRN (00:22)
[2021-06-04 06:46] LABS: CHLORIDE,CL 102 mmol/L (98-107); SODIUM,NA 134 mmol/L (136-145)
[2021-06-04 06:51] LABS: ANION GAP 7.8 mmol/L (5-15)
[2021-06-04] MEDS: Oxybutynin 5 MG Tab.ER PO SCH (08:26)
[2021-06-04] MEDS: Cholecalciferol (Vitamin D3) 25 MCG Tab PO SCH (08:26)
[2021-06-04] MEDS: Lisinopril 5 MG Tab PO SCH (08:26)
[2021-06-04] MEDS: Sertraline 100 MG Tab PO SCH (08:26)
[2021-06-04] MEDS: Pregabalin 25 MG Cap PO SCH (08:27)
[2021-06-04] MEDS: Metoprolol Succinate 25 MG Tab.ER PO SCH (08:28)
[2021-06-04] MEDS: Aspirin 81 MG Tab.EC PO SCH (08:28)
[2021-06-04] MEDS: Fluconazole 100 MG Tab PO SCH (08:28)
[2021-06-04] MEDS: Fluticasone Propionate Nasal Spray 9.9 ML BOTTLE NASBOTH SCH (08:29)
[2021-06-04] MEDS: Nicotine 7 MG/24 Hr Patch TRDERM SCH (08:29)
[2021-06-04] MEDS: Fluticasone-Salmeterol 55-14 MCG Powder Inhalent INH SCH (08:31)
--- NOTE | 2021-06-04 08:51 | PN ---
Progress Note for REN BRITTON Date: 06/04/2021 Room #: VM.203 SUBJECTIVE: The patient is feeling much stronger. She is eating okay. She has not fallen. She has done well with physical therapy. They do not feel any further need to work with her. She is still pending her final OT evaluation for cognitive, but has been seemingly looking quite good to staff. She comments that she did not sleep well and her current dose of sleeping pill is not working for her. Her sinuses are feeling better since she's resumed her flonase. OBJECTIVE: Vital Signs: Her blood pressure is 140/73, pulse is 60, temperature is 36.6, O2 sats are 94% on room air. General: She is alert, pleasant to visit with. Skin: Her abrasions are healing up. Heart: Regular rate and rhythm. Lungs: Clear to auscultation. She has rare crackle on left base. Abdomen: Soft. Extremities: Lower extremities, no edema. LABORATORY DATA: Her lab today shows her sodium is 134, potassium 4.8, creatinine 0.8. GFR is greater than 60. Hemoglobin stable at 12.9. IMPRESSION: 1. Dehydration. 2. Frequent falls. 3. Hyponatremia, resolved. 4. Hyperkalemia, resolved. 5. Hypertension. 6. Chronic back pain. 7. Chronic rhinitis PLAN: We will discharge the patient home today and she will continue her same preadmission medications. We will keep her sleeping pill today and we will further address this when she is seen in the clinic in 2 weeks' time. GM06/04/2021 08:30:31 MODL: 06/04/2021 08:43:48 /[id number] MTDDaniel
--- NOTE | 2021-06-04 14:48 | DISCH ---
PRIMARY DIAGNOSES: 1. Frequent falls. 2. Hyponatremia. 3. Abrasion to her face. 4. Left shoulder strain. 5. Dehydration. 6. Acute kidney injury. 7. Hypertension. 8. Peripheral vascular disease. 9. Chronic obstructive pulmonary disease. 10.Tobacco addiction. 11.Vitamin D disorder. 12.Major depressive disorder. 13.Chronic back pain. 14.Insomnia. 15.Reflux disease. 16.Mixed incontinence. 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 18.Blindness. 19.Osteoporosis. 20. Chronic rhinitis SUMMARY OF ADMIT HISTORY AND PHYSICAL: The patient is an 85-year-old female who presented to the emergency room after having fallen, hit her face, was evaluated with a head CT that was negative for any bleeds. She was noted to have a sodium down to 129. She recently had been treated for some acute sinusitis with Bactrim and then had developed thrush for which she was placed on Diflucan for. Her throat is much better. The patient was noted to be quite weak. Her lab in the emergency room showed white blood cell count 7.3, hemoglobin 13.6, sodium 129, potassium 5.2, creatinine 1.3, BUN 21, GFR 39, glucose 96. Remaining tests were normal. Urine test was negative. COVID was negative. The patient was admitted to acute care, placed on IV hydration with normal saline. Her abrasions were cleaned up. The patient had a negative shoulder x-ray and the patient's pain was managed with just Tylenol. She when seen on 06/03 had improvement of her sodium up to 131, potassium improved to 4.4, creatinine improved to 1.0, GFR 53, so she has received 1 more liter of IV fluids and was saline locked. She did well with physical therapy with OT. She also did well despite of her eye sight difficulties. Cognitive evaluation was still pending at the time of this discharge summary. On 06/04, her hemoglobin was stable at 12.9, sodium had improved to 134, potassium 4.8, creatinine 0.8, GFR greater than 60. The patient had iron studies done on 06/03, which showed iron 88, which was normal. Her TIBC is 317, UIBC 229, transferrin 27.8%, ferritin normal at 37. The patient's urinalysis did come back normal other than being quite dehydrated. The patient was felt stable to go home. She had received a nicotine patch to help with smoking cessation. She admitted to have not been taking her flonase nasal spray and this was resumed and she did start to feel better. MEDICATIONS: For home will be aspirin 81 mg 1 pill daily, Singulair 10 mg 1 pill at bedtime p.r.n., metoprolol-XL 25 mg 1 pill daily, Flonase 2 sprays twice a day (the patient had, but not been taking this as regularly), vitamin D 2000 units daily, albuterol 2 puffs q.4 hours p.r.n., Breo inhaler 1 puff daily, Reclast infusions 5 mg every year, Lyrica 75 mg b.i.d., oxybutynin extended release 10 mg daily, lisinopril 2.5 mg daily, Artificial Tears 1 drop every 4 hours as needed, trazodone 100 mg at bedtime (this may need to be increased as an outpatient), Zoloft 100 mg 1 pill daily, Tylenol 325 two pills q.4 hours p.r.n. The patient is to follow up and see me at her already prescheduled appointment which is in about 2 weeks' time. The patient's code level status at the time of discharge is do not resuscitate/do not intubate. Diet is regular. GM06/04/2021 08:35:28 MODL: 06/04/2021 14:43:30 /[id number] MTDD
== END 2021-06-04 10:35 | disposition home or self-care (01) | DRG 683 ==
LOC: VM.ED 11:44 → VM.MS 13:13
PROVIDERS: ADMIT Nurse Practitioner Family; ATTEND Family Medicine
DX: N17.9 Acute kidney failure, unspecified (principal); E87.1 Hypo-osmolality and hyponatremia; A52.16 Charcot's arthropathy (tabetic); S09.90XA Unspecified injury of head, initial encounter; E86.0 Dehydration; I10 Essential (primary) hypertension; F32.9 Major depressive disorder, single episode, unspecified; G89.29 Other chronic pain; G47.00 Insomnia, unspecified; M54.9 Dorsalgia, unspecified; K21.9 Gastro-esophageal reflux disease without esophagitis; M81.0 Age-related osteoporosis without current pathological fracture; R29.6 Repeated falls; I73.9 Peripheral vascular disease, unspecified; F17.210 Nicotine dependence, cigarettes, uncomplicated; E55.9 Vitamin D deficiency, unspecified; R32 Unspecified urinary incontinence; H54.7 Unspecified visual loss; J31.0 Chronic rhinitis; Z20.822 Contact with and (suspected) exposure to COVID-19; J43.1 Panlobular emphysema; S50.311A Abrasion of right elbow, initial encounter; S80.811A Abrasion, right lower leg, initial encounter; S00.211A Abrasion of right eyelid and periocular area, initial encounter; M19.90 Unspecified osteoarthritis, unspecified site; E66.9 Obesity, unspecified; D50.9 Iron deficiency anemia, unspecified; Z96.1 Presence of intraocular lens; H52.4 Presbyopia; L57.0 Actinic keratosis; E87.5 Hyperkalemia; H35.30 Unspecified macular degeneration; H52.10 Myopia, unspecified eye; H52.209 Unspecified astigmatism, unspecified eye; H43.819 Vitreous degeneration, unspecified eye; K44.9 Diaphragmatic hernia without obstruction or gangrene; Z79.82 Long term (current) use of aspirin; Z79.899 Other long term (current) drug therapy; Z85.038 Personal history of other malignant neoplasm of large intestine; Z89.431 Acquired absence of right foot; Z89.421 Acquired absence of other right toe(s); Z79.01 Long term (current) use of anticoagulants; Z86.010 Personal history of colon polyps; Z98.49 Cataract extraction status, unspecified eye; Z90.49 Acquired absence of other specified parts of digestive tract; Z90.710 Acquired absence of both cervix and uterus; Z98.84 Bariatric surgery status
CPT/HCPCS: 36415; 70450; 73030-LT; 80048; 80053; 81003; 82728; 83540; 83550; 83735; 84484; 85025; 90471; 90715; 93005; 97162-GP; 97165-GO; 99284; 99285-25; A9270-GY; J7030; U0002

== ENCOUNTER 2021-06-27 13:45 | Observation (INO) | payer MEDICARE, OTHER ==
[2021-06-27] MEDS ORDERED: Sodium Chloride 0.9% 10 ML Syringe FLUSH PRN (14:05)
--- NOTE | 2021-06-27 14:15 | EDM.PDOC ---
ED HPI GENERAL MEDICAL PROBLEM - General Chief Complaint: General Stated Complaint: NOT FEELING WELL Time Seen by Provider: 06/27/21 14:00 Source of Information: Reports: Patient History Limitations: Reports: No Limitations - History of Present Illness INITIAL COMMENTS - FREE TEXT/NARRATIVE: Patient comes emergency department today with complaints of lightheadedness or dizziness. This patient was seen a couple of months ago by myself in the emergency department and noted to be hyponatremic and was hospitalized. For the past 3 to 4 days she has had similar symptoms of unsteadiness lightheadedness. She has had no syncopes or fall. She has no headache no visual acuity changes. She is somewhat blind with macular degeneration. She has had no palpitations or syncope. No fever no chills. No chest pain or chest palpitations. She does have COPD and has no worse difficulty breathing than typical. Although she has been coughing quite a bit more and having large amounts of sputum. Is much thicker and greater than typical. She also has sinus congestion pressure and drainage. No abdominal pain. She did have some nausea and vomited once this morning. She does complain of urinary frequency without dysuria. No constipation or diarrhea. No recent change in her medications. She does have a history of hypertension peripheral vascular disease diabetes vitamin D deficiency obesity hyponatremia. She is quite concerned being at home as she on a regular basis is difficult for her to get around. She falls on a frequent basis and she has not recently. She has concerns for her lightheadedness. She has no vertigo type sensation. - Related Data Allergies Allergy/AdvReac Type Severity Reaction Status Date / Time No Known Allergies Allergy Verified 06/27/21 13:54 Home Meds: Home Meds Aspirin [Halfprin] 81 mg PO DAILY 01/06/18 [History] Cholecalciferol (Vitamin D3) [Vitamin D3] 2,000 unit PO DAILY 01/11/18 [History] Fluticasone Propionate [Flonase] 2 spray NASBOTH BID 01/11/18 [History] Metoprolol Succinate [Toprol XL] 25 mg PO DAILY 01/11/18 [History] Montelukast [Singulair] 10 mg PO BEDTIME PRN 01/11/18 [History] Albuterol Sulfate [Albuterol Sulfate Hfa] 2 puff IH Q4HR PRN 08/08/20 [History] Fluticasone/Vilanterol [Breo Ellipta 100-25 MCG Inhalation Kit] 1 puff IH DAILY 08/08/20 [History] Oxybutynin [Oxybutynin ER] 10 mg PO DAILY 08/08/20 [History] Pregabalin [Lyrica] 75 mg PO BID 08/08/20 [History] Zoledronic Acid/Mannitol-Water [Zoledronic Acid 5 mg/100 ml] 5 mg IV ASDIRECTED 08/08/20 [History] lisinopriL [Prinivil] 2.5 mg PO DAILY 08/08/20 [History] Carboxymethylcellulose Sodium [Artificial Tears] 1 drop EYEBOTH Q4HR PRN 06/02/21 [History] Sertraline [Zoloft] 100 mg PO DAILY 06/02/21 [History] traZODone 150 mg PO BEDTIME 06/02/21 [History] Acetaminophen [Tylenol] 650 mg PO Q4H PRN tablet 06/04/21 [Rx] Loratadine 10 mg PO DAILY 06/27/21 [History] Doxycycline Hyclate 100 mg PO BID #20 capsule 06/28/21 [Rx] Doxycycline Hyclate 100 mg PO BID #20 capsule 06/28/21 [Rx] guaiFENesin [Wal-Tussin] 400 mg PO Q6H PRN #120 liquid 06/28/21 [Rx] Past Medical History HEENT History: Reports: Allergic Rhinitis, Cataract, Macular Degeneration Other HEENT History: pseudophakia. presbyopia. myopia. astigmatism. posterior vitreous detachment. epiretinal membrane of right eye. vitreous floaters of left eye Cardiovascular History: Reports: Hypertension, Syncope Other Cardiovascular History: peripheral vascular disease Respiratory History: Reports: Other (See Below) Other Respiratory History: emphysema. sinus headache Gastrointestinal History: Reports: Colon Polyp, GERD, Hiatal Hernia Other Gastrointestinal History: blind loop syndrome Genitourinary History: Reports: Urinary Incontinence Musculoskeletal History: Reports: Back Pain, Chronic, Osteoarthritis, Osteoporosis Other Musculoskeletal History: spinal stenosis. charcot's joint of left foot. gait abnormality. contusion of right knee. bakers cyst. kyphosis. scoliosis Other Neuro History: insomnia. chronic paroxysmal hemicrania Psychiatric History: Reports: Depression Endocrine/Metabolic History: Reports: Obesity/BMI 30+, Vitamin D Deficiency Other Endocrine/Metabolic History: hyperglycemia. hyponatremia Hematologic History: Reports: Anemia, Blood Transfusion(s), Iron Deficiency Other Hematologic History: inadequate iron intake Oncologic (Cancer) History: Reports: Colon Dermatologic History: Reports: Cellulitis, Urticaria Other Dermatologic History: actinic keratosis. atopic dermatitis. pigmented skin lesion. tramatic ulcer - Infectious Disease History Infectious Disease History: Reports: Chicken Pox, Measles - Past Surgical History HEENT Surgical History: Reports: Cataract Surgery Other HEENT Surgeries/Procedures: YAG capsulotomy. intravitreal inj - left - x30 Other Cardiovascular Surgeries/Procedures: vascular bypass - 01/03/2015 GI Surgical History: Reports: Appendectomy, Cholecystectomy, Colon, Colonoscopy, Lysis of Adhesions Other GI Surgeries/Procedures: gastric bypass - 1980. elevated CEA Female Surgical History: Reports: Hysterectomy Musculoskeletal Surgical History: Reports: Amputation, Carpal Tunnel Other Musculoskeletal Surgeries/Procedures:: wrist fx sx. foot sx. ankle fx surgery. knee surgery. IM nailing - 01/07/2018 Social & Family History - Family History Family Medical History: No Pertinent Family History - Tobacco Use Tobacco Use Status *Q: Unknown Ever Used Tobacco - Caffeine Use Caffeine Use: Reports: Coffee, Soda Caffeine Use Comment: wants coffee throughout the day ED ROS GENERAL - Review of Systems Review Of Systems: Comprehensive ROS is negative, except as noted in HPI. ED EXAM, GENERAL - Physical Exam Exam: See Below Exam Limited By: No Limitations General Appearance: Alert, WD/WN, No Apparent Distress Eye Exam: Bilateral Eye: EOMI Ears: Normal External Exam Nose: Normal Inspection Throat/Mouth: Normal Inspection Head: Atraumatic, Normocephalic Neck: Normal Inspection, Supple, Non-Tender Respiratory/Chest: No Respiratory Distress, Decreased Breath Sounds, Wheezing (No inspiratory moderate expiratory bilaterally Rhonchi right middle region) Cardiovascular: Normal Peripheral Pulses, Regular Rate, Rhythm GI/Abdominal: Normal Bowel Sounds, Soft (Female) Exam: Deferred Rectal (Female) Exam: Deferred Back Exam: Normal Inspection Extremities: Normal Inspection, No Pedal Edema, Normal Capillary Refill Neurological: Alert, Oriented, Normal Cognition, No Motor/Sensory Deficits Psychiatric: Normal Affect, Normal Mood Skin Exam: Warm, Dry, Intact, Normal Color, No Rash Course - Vital Signs Last Recorded V/S: Last Vital Signs Temp 98.3 F 06/28/21 10:00 Pulse 77 06/28/21 10:00 Resp 20 06/28/21 10:00 BP 131/61 06/28/21 10:00 Pulse Ox 88 L 06/28/21 10:00 - Orders/Labs/Meds Labs: Laboratory Tests 06/27/21 06/27/21 06/27/21 Range/Units 14:14 14:14 14:40 WBC 20.4 H* (4.0-10.0) x10^3/uL RBC 4.51 (4.00-5.50) x10^6/uL Hgb 13.6 (12.0-16.0) g/dL Hct 39.9 (33.0-47.0) % MCV 88.5 (78.0-93.0) fL MCH 30.2 (26.0-32.0) pg MCHC 34.1 (32.0-36.0) g/dL RDW Coeff of Marleny 14.5 (10.0-15.0) % Plt Count 196 (130-400) x10^3/uL Add Manual Diff Yes Neutrophils % (Manual) 88 H (50-80) % Band Neutrophils % 1 (0-6) % Lymphocytes % (Manual) 5 L (25-50) % Monocytes % (Manual) 5 (2-11) % Eosinophils % (Manual) 1 (0-4) % Hypersegmented Neuts Occasional H Platelet Estimate Adequate Sodium 134 L (136-145) mmol/L Potassium 3.4 L (3.5-5.1) mmol/L Chloride 98 (98-107) mmol/L Carbon Dioxide 27 (21-32) mmol/L Anion Gap 12.4 (5-15) mmol/L BUN 14 (7-18) mg/dL Creatinine 0.8 (0.55-1.02) mg/dL Est Cr Clr Drug Dosing TNP Estimated GFR (MDRD) > 60 Glucose 110 H (70-99) mg/dL Lactic Acid 0.8 (0.4-2.0) mmol/L Calcium 8.3 L (8.5-10.1) mg/dL Corrected Calcium 9.6 (8.5-10.1) mg/dL Magnesium 1.7 L (1.8-2.4) mg/dL Total Bilirubin 0.3 (0.2-1.0) mg/dL AST 15 (15-37) U/L ALT 9 L (14-59) U/L Alkaline Phosphatase 110 (46-116) U/L Troponin I High Sens 9 (<=51) ng/L C-Reactive Protein (<=0.9) mg/dL Total Protein 7.1 (6.4-8.2) g/dL Albumin 2.4 L (3.4-5.0) g/dL Globulin 4.7 Albumin/Globulin Ratio 0.51 Procalcitonin (0.1-0.50) ng/mL Urine Color (YELLOW) Urine Appearance (CLEAR) Urine pH (5.0-8.0) Ur Specific [place] Urine Protein (NEGATIVE) mg/dL Urine Glucose (UA) (NEGATIVE) mg/dL Urine Ketones (NEGATIVE) mg/dL Urine Occult Blood (NEGATIVE) Urine Nitrite (NEGATIVE) Urine Bilirubin (NEGATIVE) Urine Urobilinogen (0.2) EU/dL Ur Leukocyte Esterase (NEGATIVE) Urine RBC (NOT SEEN) /HPF Urine WBC (NOT SEEN) /HPF Ur Squamous Epith Cells (NOT SEEN) /HPF Amorphous Sediment Urine Bacteria (NOT SEEN) /HPF Urine Mucus (NOT SEEN) /LPF 06/27/21 06/27/21 06/27/21 Range/Units 14:40 14:40 15:11 WBC (4.0-10.0) x10^3/uL RBC (4.00-5.50) x10^6/uL Hgb (12.0-16.0) g/dL Hct (33.0-47.0) % MCV (78.0-93.0) fL MCH (26.0-32.0) pg MCHC (32.0-36.0) g/dL RDW Coeff of Marleny (10.0-15.0) % Plt Count (130-400) x10^3/uL Add Manual Diff Neutrophils % (Manual) (50-80) % Band Neutrophils % (0-6) % Lymphocytes % (Manual) (25-50) % Monocytes % (Manual) (2-11) % Eosinophils % (Manual) (0-4) % Hypersegmented Neuts Platelet Estimate Sodium (136-145) mmol/L Potassium (3.5-5.1) mmol/L Chloride (98-107) mmol/L Carbon Dioxide (21-32) mmol/L Anion Gap (5-15) mmol/L BUN (7-18) mg/dL Creatinine (0.55-1.02) mg/dL Est Cr Clr Drug Dosing Estimated GFR (MDRD) Glucose (70-99) mg/dL Lactic Acid (0.4-2.0) mmol/L Calcium (8.5-10.1) mg/dL Corrected Calcium (8.5-10.1) mg/dL Magnesium (1.8-2.4) mg/dL Total Bilirubin (0.2-1.0) mg/dL AST (15-37) U/L ALT (14-59) U/L Alkaline Phosphatase (46-116) U/L Troponin I High Sens (<=51) ng/L C-Reactive Protein 25.6 H (<=0.9) mg/dL Total Protein (6.4-8.2) g/dL Albumin (3.4-5.0) g/dL Globulin Albumin/Globulin Ratio Procalcitonin 0.07 L (0.1-0.50) ng/mL Urine Color Yellow (YELLOW) Urine Appearance Slightly cloudy H (CLEAR) Urine pH 6.5 (5.0-8.0) Ur Specific [place] 1.020 Urine Protein 30 H (NEGATIVE) mg/dL Urine Glucose (UA) Negative (NEGATIVE) mg/dL Urine Ketones Negative (NEGATIVE) mg/dL Urine Occult Blood Negative (NEGATIVE) Urine Nitrite Negative (NEGATIVE) Urine Bilirubin Small H (NEGATIVE) Urine Urobilinogen 1.0 (0.2) EU/dL Ur Leukocyte Esterase Negative (NEGATIVE) Urine RBC 0-5 (NOT SEEN) /HPF Urine WBC 0-5 (NOT SEEN) /HPF Ur Squamous Epith Cells Few H (NOT SEEN) /HPF Amorphous Sediment Occasional Urine Bacteria Rare (NOT SEEN) /HPF Urine Mucus Few H (NOT SEEN) /LPF Meds: Medications Discontinued Medications Generic Name Dose Route Start Last Admin Trade Name Freq PRN Reason Stop Dose Admin Arformoterol Tartrate 15 mcg 06/27/21 20:00 06/28/21 08:28 Arformoterol 15 Mcg/2 Ml Neb Soln NEB 15 mcg BIDRT MIKAELA Administration Aspirin 81 mg 06/28/21 08:00 06/28/21 08:42 Aspirin 81 Mg Tab.Ec PO 81 mg DAILY MIKAELA Administration Benzonatate 100 mg 06/27/21 19:21 06/28/21 08:41 Benzonatate 100 Mg Cap PO 100 mg TID PRN Administration Cough Budesonide 0.5 mg 06/27/21 20:00 06/28/21 08:28 Budesonide 0.5 Mg/2 Ml Neb Susp NEB 0.5 mg BIDRT MIKAELA Administration Ceftriaxone Sodium 2 gm 06/27/21 14:36 06/27/21 14:53 Ceftriaxone 2 Gm Vial IVPUSH 06/27/21 14:37 2 gm STAT ONE Administration Ceftriaxone Sodium 2 gm 06/28/21 14:00 Ceftriaxone 2 Gm Vial IVPUSH DAILY MIKAELA Ceftriaxone Sodium 2 gm 06/28/21 12:00 06/28/21 12:24 Ceftriaxone 2 Gm Vial IVPUSH 2 gm DAILY@1200 MIKAELA Administration Cholecalciferol 50 mcg 06/28/21 08:00 06/28/21 08:41 Cholecalciferol (Vitamin D3) 25 Mcg Tab PO 50 mcg DAILY MIKAELA Administration Fluticasone Propionate 0 ml 06/27/21 20:00 06/28/21 08:47 Fluticasone Propionate Nasal [place] 9.9 Ml Bottle NASBOTH 2 spray BID MIKAELA Administration Guaifenesin 400 mg 06/27/21 17:28 06/28/21 08:41 Guaifenesin 100 Mg/5 Ml Soln 10 Ml Ud Cup PO 400 mg Q6H PRN Administration Cough Sodium Chloride 1,000 mls @ 75 mls/hr 06/27/21 14:15 06/27/21 22:32 Normal Saline IV 75 mls/hr ASDIRECTED MIKAELA Administration Azithromycin 500 mg/ Sodium 250 mls @ 250 mls/hr 06/27/21 15:53 06/27/21 16:03 Chloride IV 06/27/21 16:52 250 mls/hr STAT ONE Administration Azithromycin 500 mg/ Sodium 250 mls @ 250 mls/hr 06/28/21 14:00 Chloride IV DAILY MIKAELA Azithromycin 500 mg/ Sodium 250 mls @ 250 mls/hr 06/28/21 12:00 06/28/21 12:24 Chloride IV 250 mls/hr DAILY@1200 MIKAELA Administration Lisinopril 2.5 mg 06/28/21 08:00 06/28/21 08:45 Lisinopril 5 Mg Tab PO 2.5 mg DAILY MIKAELA Administration Loratadine 10 mg 06/28/21 08:00 06/28/21 08:45 Loratadine 10 Mg Tab PO 10 mg DAILY MIKAELA Administration Magnesium Oxide 800 mg 06/27/21 17:22 06/27/21 18:09 Magnesium Oxide 400 Mg Tab PO 06/27/21 17:23 800 mg ONETIME ONE Administration Metoprolol Succinate 25 mg 06/28/21 08:00 06/28/21 08:42 Metoprolol Succinate 25 Mg Tab.Er PO 25 mg DAILY MIKAELA Administration Montelukast Sodium 10 mg 06/27/21 18:21 06/27/21 19:56 Montelukast 10 Mg Tab PO 10 mg BEDTIME PRN Administration chronic sinus infection Oxybutynin Chloride 10 mg 06/28/21 08:00 06/28/21 08:45 Oxybutynin 5 Mg Tab.Er PO 10 mg DAILY MIKAELA Administration Potassium Chloride 20 meq 06/27/21 18:24 06/27/21 19:51 Potassium Chloride 10% 20 Meq/15 Ml Soln 15 Ml Ud Cup PO 06/27/21 18:25 20 meq ONETIME ONE Administration Pregabalin 75 mg 06/27/21 20:00 06/28/21 08:41 Pregabalin 25 Mg Cap PO 75 mg BID MIKAELA Administration Sertraline HCl 100 mg 06/28/21 08:00 06/28/21 08:45 Sertraline 100 Mg Tab PO 100 mg DAILY MIKAELA Administration Sodium Chloride 10 ml 06/27/21 14:05 Sodium Chloride 0.9% 10 Ml Syringe FLUSH ASDIRECTED PRN Keep Vein Open Trazodone HCl 150 mg 06/27/21 20:00 06/27/21 19:57 Trazodone 50 Mg Tab PO 150 mg BEDTIME MIKAELA Administration - Radiology Interpretation Free Text/Narrative:: Chest x-ray per radiology impression no pneumonia or edema. Bilateral paratracheal vascular fullness. Thoracic aorta is tortuous the aorta is prominent the lungs are clear - Re-Assessments/Exams Free Text/Narrative Re-Assessment/Exam: IV was established labs are drawn. Treatment with medications as above. White blood cell count quite elevated at 20.4 with a neutrophils of 88. Sodium 134, potassium 3.4, glucose 110, magnesium minimally low at 1.7 Troponin negative at 9. EKG unremarkable. C-reactive protein is quite elevated at 25.6. Her procalcitonin is 0.07. Urinalysis noninfectious appearing. The patient does have concerns for chronic sinusitis. As well as the quite a bit of phlegm in her throat. She has been coughing so hard when she is been at home that she has been throwing up. Blood cultures are pending. Not finding any site of her infection at this time with her quite elevated white blood cell count. As well as her elevated CRP. My assumption that this is most likely due to a pneumonia that has not fluoresced yet. With this uncertainty patient does not feel comfortable going home at this time. We will admit her under observation for further work-up and management to ensure that were not missing some type of other process going on. We will treat her for a COPD exacerbation at this time. We will follow her closely. She is comfortable with this plan and her questions are answered. Departure - Departure Time of Disposition: 16:00 Disposition: Refer to Observation Clinical Impression: Lightheadedness, Hyponatremia, Hypokalemia, Hypomagnesemia COPD (chronic obstructive pulmonary disease) Qualifiers: COPD type: COPD with acute exacerbation Qualified Code(s): J44.1 - Chronic obstructive pulmonary disease with (acute) exacerbation Leukocytosis Qualifiers: Leukocytosis type: unspecified Qualified Code(s): D72.829 - Elevated white blood cell count, unspecified - Discharge Information Sepsis Event Note (ED) - Evaluation Sepsis Screening Result: No Definite Risk - Problem List & Annotations (1) Lightheadedness SNOMED Code(s): 867424106 Code(s): R42 - DIZZINESS AND GIDDINESS Status: Acute Annotation/Comment:: Unsure of the causative agent of her lightheadedness. Could be due to infection. She does not appear to be hyponatremic as severe as she has been in the past. We will hydrate her lightly overnight and see how she is feeling. Although it is not uncommon for her to be lightheaded on a regular basis it is more pronounced recently. No other neurological findings at this time. (2) Hyponatremia SNOMED Code(s): 53884203 Code(s): E87.1 - HYPO-OSMOLALITY AND HYPONATREMIA Status: Acute Annotation/Comment:: Mildly low sodium much improved in the past. We will hyd rate her gently over the night with fluids to see if this is improved. (3) Hypokalemia SNOMED Code(s): 04754497 Code(s): E87.6 - HYPOKALEMIA Status: Acute Annotation/Comment:: She was given some potassium and we will follow this in the hospital. (4) Hypomagnesemia SNOMED Code(s): 750945539 Code(s): E83.42 - HYPOMAGNESEMIA Status: Acute Annotation/Comment:: She was given magnesium this will be followed in the hospital. (5) Leukocytosis SNOMED Code(s): 630795688, 486058889 Code(s): D72.829 - ELEVATED WHITE BLOOD CELL COUNT, UNSPECIFIED Status: Acute Annotation/Comment:: I am unsure of what is causing her quite elevated white blood cell count. She has a normal lactic acid. Quite elevated CRP and a minimally elevated procalcitonin. I am unsure of her site of infection at this time. Although it is most likely located in her lungs. We will treat her with azithromycin and ceftriaxone at this time until we have better understanding of what is causing her leukocytosis. Qualifiers: Leukocytosis type: unspecified Qualified Code(s): D72.829 - Elevated white blood cell count, unspecified (6) COPD (chronic obstructive pulmonary disease) SNOMED Code(s): 61709341 Code(s): J44.9 - CHRONIC OBSTRUCTIVE PULMONARY DISEASE, UNSPECIFIED Status: Acute Annotation/Comment:: She does not appear to be in exacerbation. She is really not complaining of worsening shortness of breath other than a cough and increased amount of sputum. She does have leukocytosis. No pneumonia on her chest x-ray at this time but she might be a little dehydrated and this might fluoresce with some fluid hydration. We will treat her with Rocephin and azithromycin at this time. We will also switch her MDI inhalers to nebulizers while she was in the hospital to see if it can help with her mucus that she complains about. We will also give her Tessalon Perles and guaifenesin. Qualifiers: COPD type: COPD with acute exacerbation Qualified Code(s): J44.1 - Chronic obstructive pulmonary disease with (acute) exacerbation (7) Nicotine dependence SNOMED Code(s): 90929844 Code(s): F17.200 - NICOTINE DEPENDENCE, UNSPECIFIED, UNCOMPLICATED Status: Acute (8) Hypertension SNOMED Code(s): 61650416 Code(s): I10 - ESSENTIAL (PRIMARY) HYPERTENSION Status: Acute Annotation/Comment:: Continue home medications and monitor - Problem List Review Problem List Initiated/Reviewed/Updated: Yes - Assessment/Plan Admission H&P: Please use this note as an admission H&P Assessment:: Assessment and plan. We will place the patient in observation with the above concerns. She will be monitored closely and repeat her labs in the morning. Sepsis: Blood cultures are pending. We are covering her with a azithromycin and ceftriaxone. Lactic acid is normal. Procalcitonin 0.07. VTE: Low risk Short stay teds. CODE STATUS DNR/DNI discussed with patient. I do not anticipate more than overnight may be 2 nights at this time until we can determine for sure the cause of her leukocytosis. If she worsens at all we may have to change her to inpatient but I do not anticipate that.
[2021-06-27] MEDS: Sodium Chloride 0.9% 1,000 ML IV SCH ×2 (14:18→22:32)
[2021-06-27] MEDS ORDERED: cefTRIAXone 2 GM Vial IVPUSH ONE (14:36)
[2021-06-27 14:45] LABS: CHLORIDE,CL 98 mmol/L (98-107); SODIUM,NA 134 mmol/L (136-145)
[2021-06-27 15:01] LABS: ANION GAP 12.4 mmol/L (5-15)
--- NOTE | 2021-06-27 15:25 | CR ---
[id number] RAD/RAD Chest PA or AP 1V EXAM: SINGLE VIEW CHEST. INDICATION: WEAKNESS ELEVATED WHITE BLOOD CELL COUNT COMPARISON: RELATION IS MADE WITH THE CAT SCAN OF 2019 FINDINGS: The lungs are clear The aorta is prominent The thoracic aorta is tortuous There is bilateral paratracheal vascular fullness IMPRESSION: NO PNEUMONIA OR EDEMA Harley Hahn MD 06/27/21 2483 Thank you for allowing us to participate in the care of your patient.
[2021-06-27] MEDS ORDERED: Azithromycin 500 MG in Sodium Chloride 0.9% 250 ML IV ONE (15:53)
[2021-06-27] MEDS ORDERED: Magnesium Oxide 400 MG Tab PO ONE (17:22)
[2021-06-27] MEDS ORDERED: Montelukast 10 MG Tab PO PRN (18:21)
[2021-06-27] MEDS ORDERED: Potassium Chloride 10% 20 MEQ/15 ML Soln 15 ML UD Cup PO ONE (18:24)
[2021-06-27] MEDS: Fluticasone Propionate Nasal Spray 9.9 ML BOTTLE NASBOTH SCH (19:51)
[2021-06-27] MEDS: Pregabalin 25 MG Cap PO SCH (19:56)
[2021-06-27] MEDS: Benzonatate 100 MG Cap PO PRN (19:57)
[2021-06-27] MEDS: guaiFENesin 100 MG/5 ML Soln 10 ML UD Cup PO PRN (19:59)
[2021-06-27] MEDS: Arformoterol 15 MCG/2 ML Neb Soln NEB SCH (20:00)
[2021-06-27] MEDS: Budesonide 0.5 MG/2 ML Neb Susp NEB SCH (20:00)
[2021-06-27] MEDS ORDERED: traZODone 50 MG Tab PO SCH (20:00)
[2021-06-28] MEDS: guaiFENesin 100 MG/5 ML Soln 10 ML UD Cup PO PRN ×2 (02:50→08:41)
[2021-06-28] MEDS ORDERED: Lisinopril 5 MG Tab PO SCH (08:00)
[2021-06-28] MEDS ORDERED: Loratadine 10 MG Tab PO SCH (08:00)
[2021-06-28] MEDS ORDERED: Aspirin 81 MG Tab.EC PO SCH (08:00)
[2021-06-28] MEDS ORDERED: Cholecalciferol (Vitamin D3) 25 MCG Tab PO SCH (08:00)
[2021-06-28] MEDS ORDERED: Sertraline 100 MG Tab PO SCH (08:00)
[2021-06-28] MEDS ORDERED: Oxybutynin 5 MG Tab.ER PO SCH (08:00)
[2021-06-28] MEDS ORDERED: Metoprolol Succinate 25 MG Tab.ER PO SCH (08:00)
[2021-06-28] MEDS: Budesonide 0.5 MG/2 ML Neb Susp NEB SCH (08:28)
[2021-06-28] MEDS: Arformoterol 15 MCG/2 ML Neb Soln NEB SCH (08:28)
[2021-06-28 08:36] LABS: ANION GAP 11.3 mmol/L (5-15); CHLORIDE,CL 100 mmol/L (98-107); SODIUM,NA 136 mmol/L (136-145)
[2021-06-28] MEDS: Benzonatate 100 MG Cap PO PRN (08:41)
[2021-06-28] MEDS: Pregabalin 25 MG Cap PO SCH (08:41)
[2021-06-28] MEDS: Fluticasone Propionate Nasal Spray 9.9 ML BOTTLE NASBOTH SCH (08:47)
--- NOTE | 2021-06-28 08:50 | CR ---
[id number] RAD/RAD Chest PA And Lateral EXAM: RAD Chest PA And Lateral INDICATION: FOLLOWING FOR LEUKOCYTOSIS. COMPARISON: 06/27/2021 DISCUSSION: Right middle lung zone pulmonary infiltrate is more conspicuous when compared to the prior study. Low lung volumes with associated vascular crowding. The cardiomediastinal silhouette is stable in size. Trace left pleural effusion. No pneumothorax. IMPRESSION: Right middle lung zone pulmonary infiltrate. Jose J Bell DO 06/28/21 0849 Thank you for allowing us to participate in the care of your patient.
--- NOTE | 2021-06-28 08:53 | CT ---
[id number] CT/CT Sinus Survey WO IV EXAM: SINUS CT WITHOUT CONTRAST INDICATION: CHRONIC SINUSITIS LEUKOCYTOSIS. COMPARISON: None DISCUSSION: Near complete opacification of the maxillary sinuses. Mucosal thickening of the ethmoid air cells and sphenoid sinuses. Complete opacification of the left frontal sinus. The right frontal sinus and mastoid air cells are well aerated. No air-fluid levels. The nasal septum is deviated to the left. IMPRESSION: 1. Moderate paranasal sinus disease. No evidence of aggressive sinusitis. Jose J Bell DO 06/28/21 0852 Thank you for allowing us to participate in the care of your patient.
[2021-06-28] MEDS ORDERED: cefTRIAXone 2 GM Vial IVPUSH SCH ×2 (12:00→14:00)
[2021-06-28] MEDS ORDERED: Azithromycin 500 MG in Sodium Chloride 0.9% 250 ML IV SCH ×2 (12:00→14:00)
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
== END 2021-06-28 14:00 | disposition home or self-care (01) ==
LOC: VM.ED 13:45 → VM.MS 15:52
PROVIDERS: ADMIT Nurse Practitioner Family; ATTEND Nurse Practitioner Family
DX: R42 Dizziness and giddiness (principal); I73.9 Peripheral vascular disease, unspecified; K21.9 Gastro-esophageal reflux disease without esophagitis; E55.9 Vitamin D deficiency, unspecified; E66.9 Obesity, unspecified; J44.1 Chronic obstructive pulmonary disease with (acute) exacerbation; E87.1 Hypo-osmolality and hyponatremia; E87.6 Hypokalemia; E83.42 Hypomagnesemia; D72.829 Elevated white blood cell count, unspecified; Z20.822 Contact with and (suspected) exposure to COVID-19; Z79.82 Long term (current) use of aspirin; Z79.899 Other long term (current) drug therapy; Z98.890 Other specified postprocedural states; Z90.49 Acquired absence of other specified parts of digestive tract; Z68.39 Body mass index [BMI] 39.0-39.9, adult
CPT/HCPCS: 36415; 70486; 71045; 71046; 80048; 80053; 81001; 83605; 83735; 84145; 84484; 85025; 86140; 87040; 93005; 94640; 99217; 99220; A9270-GY; J0456; J0696; J7030; J7050; U0002

== ENCOUNTER 2024-02-21 10:12 | Inpatient (IN) | payer MEDICARE, OTHER ==
[2024-02-21] MEDS ORDERED: Sodium Chloride 0.9% 10 ML Syringe FLUSH PRN ×2 (13:37)
[2024-02-21] MEDS ORDERED: Polyethylene Glycol 3350 Powder 17 GM Packet PO PRN (13:37)
[2024-02-21] MEDS ORDERED: Ondansetron 4 MG Tab.DIS PO PRN (13:37)
[2024-02-21] MEDS: Albuterol HFA 18 Gm Inhaler INH SCH (17:00)
[2024-02-21] MEDS: traZODone 50 MG Tab PO SCH (20:26)
[2024-02-21] MEDS: Acetaminophen 325 MG Tab PO PRN (20:26)
[2024-02-21] MEDS: Magnesium Chloride 64 MG Tab.ER PO SCH (20:26)
[2024-02-21] MEDS: PREGABALIN PO SCH (20:26)
[2024-02-21] MEDS ORDERED: Pregabalin 25 MG Cap PO SCH (21:00)
[2024-02-22 07:36] LABS: HEMOGLOBIN 12.9 g/dL (12.0-16.0)
[2024-02-22 07:43] LABS: CALCIUM 8.3 mg/dL (8.5-10.1); CREATININE 0.8 mg/dL (0.55-1.02); EST CRCL DRUG DOSING (CG) 39.18 mL/min; MAGNESIUM 1.7 mg/dL (1.8-2.4); POTASSIUM,K 3.6 mmol/L (3.5-5.1)
[2024-02-22 07:44] LABS: ANION GAP 12.6 mmol/L (5-15)
[2024-02-22 07:48] LABS: MEAN CORPUSCULAR HEMOGLOBIN 31.4 pg (26.0-32.0); MEAN CORPUSCULAR HGB CONC 35.8 g/dL (32.0-36.0); MEAN CORPUSCULAR VOLUME 87.6 fL (78.0-93.0); RED BLOOD CELL COUNT 4.11 x10^6/uL (4.00-5.50)
[2024-02-22] MEDS: Magnesium Chloride 64 MG Tab.ER PO SCH (09:22)
[2024-02-22] MEDS: Oxybutynin 5 MG Tab.ER PO SCH (09:22)
[2024-02-22] MEDS: dexAMETHasone 2 MG, dexAMETHasone 4 MG PO SCH (09:24)
[2024-02-22] MEDS: Sertraline 100 MG Tab PO SCH (09:25)
[2024-02-22] MEDS: Lisinopril 5 MG Tab PO SCH (09:26)
[2024-02-22] MEDS: Aspirin 81 MG Tab.EC PO SCH (09:26)
[2024-02-22] MEDS: Metoprolol Succinate 25 MG Tab.ER PO SCH (09:29)
[2024-02-22] MEDS: Enoxaparin 40 MG/0.4 ML Syringe SUBCUT SCH (12:25)
[2024-02-23] MEDS: Hydrochlorothiazide 12.5 MG Cap PO SCH (09:38)
[2024-02-25 07:47] LABS: HEMATOCRIT 41.1 % (33.0-47.0); HEMOGLOBIN 13.6 g/dL (12.0-16.0); MEAN CORPUSCULAR HEMOGLOBIN 29.4 pg (26.0-32.0); MEAN CORPUSCULAR HGB CONC 33.1 g/dL (32.0-36.0); MEAN CORPUSCULAR VOLUME 88.8 fL (78.0-93.0); RED BLOOD CELL COUNT 4.63 x10^6/uL (4.00-5.50)
[2024-02-25 08:15] LABS: A/G RATIO 0.78; ALBUMIN 2.8 g/dL (3.4-5.0); BILIRUBIN TOTAL 0.2 mg/dL (0.2-1.0); CALCIUM 8.6 mg/dL (8.5-10.1); CREATININE 0.9 mg/dL (0.55-1.02); EST CRCL DRUG DOSING (CG) 34.83 mL/min; MAGNESIUM 2.3 mg/dL (1.8-2.4); POTASSIUM,K 3.9 mmol/L (3.5-5.1); PROTEIN TOTAL,TP 6.4 g/dL (6.4-8.2)
[2024-02-25 08:16] LABS: ANION GAP 10.9 mmol/L (5-15)
== END 2024-02-25 13:15 | disposition home health service (06) | DRG 947 ==
LOC: VM.MS 17:19
PROVIDERS: ADMIT Family Medicine; ATTEND Physician Assistant
DX: R53.1 Weakness (principal); J12.82 Pneumonia due to coronavirus disease 2019; U07.1 COVID-19; N39.0 Urinary tract infection, site not specified; J44.1 Chronic obstructive pulmonary disease with (acute) exacerbation; Z66 Do not resuscitate; I10 Essential (primary) hypertension; J43.1 Panlobular emphysema; F51.01 Primary insomnia; K21.9 Gastro-esophageal reflux disease without esophagitis; M81.0 Age-related osteoporosis without current pathological fracture; M48.061 Spinal stenosis, lumbar region without neurogenic claudication; M54.9 Dorsalgia, unspecified; G89.29 Other chronic pain; M19.90 Unspecified osteoarthritis, unspecified site; E66.9 Obesity, unspecified; F34.1 Dysthymic disorder; R29.6 Repeated falls; R53.81 Other malaise; E83.42 Hypomagnesemia; B96.20 Unspecified Escherichia coli [E. coli] as the cause of diseases classified elsewhere; S80.811A Abrasion, right lower leg, initial encounter; X58.XXXA Exposure to other specified factors, initial encounter; M54.50 Low back pain, unspecified; F32.A Depression, unspecified; M14.671 Charcot's joint, right ankle and foot; Z79.82 Long term (current) use of aspirin; Z79.51 Long term (current) use of inhaled steroids; Z79.899 Other long term (current) drug therapy; Z86.010 Personal history of colon polyps; Z68.28 Body mass index [BMI] 28.0-28.9, adult; Z98.49 Cataract extraction status, unspecified eye; Z98.890 Other specified postprocedural states; Z90.49 Acquired absence of other specified parts of digestive tract; Z90.710 Acquired absence of both cervix and uterus; Z87.891 Personal history of nicotine dependence
CPT/HCPCS: 36415; 71046; 80048; 80053; 83735; 83880; 85027; 94760; 97165-GO; 97530-GP; 97535-GO; A9270-GY; J1650; J8540

== ENCOUNTER 2024-02-26 17:09 | Inpatient (IN) | payer MEDICARE, OTHER ==
[2024-02-26 17:40] LABS: BASOPHILS PERCENT AUTO 0.3 % (0.2-1.2); EOSINOPHILS ABSOLUTE AUTO 0.1 x10^3/uL (0.0-0.5); EOSINOPHILS PERCENT AUTO 0.5 % (0.0-4.0); HEMATOCRIT 42.6 % (33.0-47.0); HEMOGLOBIN 14.5 g/dL (12.0-16.0); IMMATURE GRAN ABSOLUTE AUTO 0.07 x10^3/uL (0.00-0.07); LYMPHOCYTES ABSOLUTE AUTO 1.8 x10^3/uL (1.0-4.8); LYMPHOCYTES PERCENT AUTO 15.8 % (25.0-50.0); MEAN CORPUSCULAR HEMOGLOBIN 29.3 pg (26.0-32.0); MEAN CORPUSCULAR VOLUME 86.1 fL (78.0-93.0); MONOCYTES PERCENT AUTO 8.3 % (2.0-11.0); NEUTROPHILS ABSOLUTE AUTO 8.7 x10^3/uL (1.8-7.7); NEUTROPHILS PERCENT AUTO 74.5 % (50.0-80.0); PLATELET COUNT,PLT 236 x10^3/uL (130-400); RED BLOOD CELL COUNT 4.95 x10^6/uL (4.00-5.50); WHITE BLOOD CELL COUNT,WBC 11.6 x10^3/uL (4.0-10.0)
[2024-02-26 18:04] LABS: A/G RATIO 0.79; ALANINE AMINOTRANSFERASE,ALT 12 U/L (14-59); ALBUMIN 3.1 g/dL (3.4-5.0); ALKALINE PHOSPHATASE 77 U/L (46-116); ASPARTATE AMNIOTRANSFERASE,AST 15 U/L (15-37); BILIRUBIN TOTAL 0.5 mg/dL (0.2-1.0); BLOOD UREA NITROGEN,BUN 28 mg/dL (7-18); CALCIUM 8.8 mg/dL (8.5-10.1); CARBON DIOXIDE,CO2 28 mmol/L (21-32); CHLORIDE,CL 94 mmol/L (98-107); CREATININE 0.9 mg/dL (0.55-1.02); GLUCOSE RANDOM 108 mg/dL (70-99); POTASSIUM,K 3.5 mmol/L (3.5-5.1); SODIUM,NA 132 mmol/L (136-145)
[2024-02-26 18:10] LABS: ANION GAP 13.5 mmol/L (5-15); ESTIMATED GFR 62 mL/min (>=60)
[2024-02-26 18:24] LABS: APPEARANCE,URINE CLEAR (CLEAR); BILIRUBIN,URINE NEGATIVE (NEGATIVE); COLOR,URINE YELLOW (YELLOW); GLUCOSE,URINE NEGATIVE (NEGATIVE); KETONES,URINE NEGATIVE (NEGATIVE); LEUKOCYTE ESTERASE,URINE TRACE (NEGATIVE); NITRITE,URINE NEGATIVE (NEGATIVE); OCCULT BLOOD,URINE NEGATIVE (NEGATIVE); PROTEIN,URINE NEGATIVE (NEGATIVE); UROBILINOGEN,URINE 0.2 EU/dL (0.2)
[2024-02-26 18:31] LABS: BACTERIA,URINE RARE /HPF (NOT SEEN); MUCUS,URINE RARE /LPF (NOT SEEN); RBC,URINE 0-5 /HPF (NOT SEEN); SQUAMOUS EPITHELIAL CELLS,UR FEW /HPF (NOT SEEN); WBC,URINE 0-5 /HPF (NOT SEEN)
[2024-02-26] MEDS ORDERED: NICOTINE POLACRILEX 2 MG PO PRN (19:44)
[2024-02-26] MEDS: Azithromycin 250 MG Tab PO ONE (20:41)
[2024-02-26] MEDS: Pregabalin 25 MG Cap PO SCH (20:41)
[2024-02-26] MEDS: traZODone 50 MG Tab PO SCH (20:41)
[2024-02-26] MEDS: cefTRIAXone 1 GM Vial IVPUSH SCH (20:42)
[2024-02-26] MEDS: Sodium Chloride 0.9% 10 ML Syringe FLUSH PRN (20:48)
[2024-02-26] MEDS: Triamcinolone Acetonide 0.1% Crm 15 GM Tube TOP SCH (20:50)
[2024-02-26] MEDS ORDERED: Albuterol 0.083% 2.5 MG/3 ML Neb Soln INH PRN (22:03)
[2024-02-26] MEDS ORDERED: Albuterol 0.083% 2.5 MG/3 ML Neb Soln INH SCH (23:00)
[2024-02-27] MEDS: Magnesium Chloride 64 MG Tab.ER PO SCH (10:41)
[2024-02-27] MEDS: Aspirin 81 MG Tab.EC PO SCH (10:41)
[2024-02-27] MEDS: Sertraline 100 MG Tab PO SCH (10:42)
[2024-02-27] MEDS: Oxybutynin 5 MG Tab.ER PO SCH (10:42)
[2024-02-27] MEDS: Hydrochlorothiazide 12.5 MG Cap PO SCH (10:42)
[2024-02-27] MEDS: Lisinopril 5 MG Tab PO SCH (10:43)
[2024-02-27] MEDS: Metoprolol Succinate 25 MG Tab.ER PO SCH (10:43)
[2024-02-27] MEDS: Azithromycin 250 MG Tab PO SCH (20:08)
[2024-02-28] MEDS: Polyethylene Glycol 3350 Powder 17 GM Packet PO PRN (04:03)
[2024-02-28 07:16] LABS: BASOPHILS PERCENT AUTO 0.2 % (0.2-1.2); EOSINOPHILS ABSOLUTE AUTO 0.2 x10^3/uL (0.0-0.5); EOSINOPHILS PERCENT AUTO 1.3 % (0.0-4.0); HEMATOCRIT 40.5 % (33.0-47.0); HEMOGLOBIN 13.6 g/dL (12.0-16.0); IMMATURE GRAN ABSOLUTE AUTO 0.04 x10^3/uL (0.00-0.07); LYMPHOCYTES ABSOLUTE AUTO 1.2 x10^3/uL (1.0-4.8); LYMPHOCYTES PERCENT AUTO 10.1 % (25.0-50.0); MEAN CORPUSCULAR HGB CONC 33.6 g/dL (32.0-36.0); MEAN CORPUSCULAR VOLUME 86.4 fL (78.0-93.0); MONOCYTES ABSOLUTE AUTO 0.9 x10^3/uL (0.0-0.8); MONOCYTES PERCENT AUTO 7.1 % (2.0-11.0); NEUTROPHILS ABSOLUTE AUTO 9.7 x10^3/uL (1.8-7.7); PLATELET COUNT,PLT 179 x10^3/uL (130-400); RED BLOOD CELL COUNT 4.69 x10^6/uL (4.00-5.50)
[2024-02-28 07:32] LABS: A/G RATIO 0.69; ALBUMIN 2.7 g/dL (3.4-5.0); BILIRUBIN TOTAL 0.3 mg/dL (0.2-1.0); CALCIUM 8.6 mg/dL (8.5-10.1); CREATININE 0.8 mg/dL (0.55-1.02); EST CRCL DRUG DOSING (CG) 40.98 mL/min; POTASSIUM,K 3.3 mmol/L (3.5-5.1); PROTEIN TOTAL,TP 6.6 g/dL (6.4-8.2)
[2024-02-28 07:36] LABS: ANION GAP 7.3 mmol/L (5-15)
[2024-02-28] MEDS: Potassium Chloride Riders 20 MEQ in Premix Bag 1 BAG IV ONE (12:31)
[2024-02-28 12:41] LABS: LACTIC ACID 1.1 mmol/L (0.4-2.0)
[2024-02-28] MEDS: Ondansetron 4 MG Tab.DIS PO PRN (12:49)
[2024-02-28] MEDS: Sodium Chloride 0.9% 1,000 ML IV SCH (13:11)
[2024-02-28 17:41] LABS: APPEARANCE,URINE SLIGHTLY CLOUDY (CLEAR); BILIRUBIN,URINE NEGATIVE (NEGATIVE); COLOR,URINE AMBER (YELLOW); GLUCOSE,URINE NEGATIVE (NEGATIVE); KETONES,URINE NEGATIVE (NEGATIVE); LEUKOCYTE ESTERASE,URINE SMALL (NEGATIVE); NITRITE,URINE NEGATIVE (NEGATIVE); OCCULT BLOOD,URINE NEGATIVE (NEGATIVE); PH,URINE 5.5 (5.0-8.0); PROTEIN,URINE NEGATIVE (NEGATIVE); UROBILINOGEN,URINE 0.2 EU/dL (0.2)
[2024-02-28 17:50] LABS: BACTERIA,URINE FEW /HPF (NOT SEEN); HYALINE CASTS,URINE FEW; RBC,URINE NOT SEEN /HPF (NOT SEEN); SQUAMOUS EPITHELIAL CELLS,UR MANY /HPF (NOT SEEN)
[2024-02-28 18:18] LABS: ANION GAP 12.3 mmol/L (5-15); CALCIUM 8.3 mg/dL (8.5-10.1); EST CRCL DRUG DOSING (CG) 32.79 mL/min; POTASSIUM,K 4.3 mmol/L (3.5-5.1)
[2024-02-29 06:46] LABS: BASOPHILS PERCENT AUTO 0.2 % (0.2-1.2); EOSINOPHILS ABSOLUTE AUTO 0.2 x10^3/uL (0.0-0.5); EOSINOPHILS PERCENT AUTO 1.9 % (0.0-4.0); HEMATOCRIT 36.4 % (33.0-47.0); IMMATURE GRAN ABSOLUTE AUTO 0.03 x10^3/uL (0.00-0.07); LYMPHOCYTES ABSOLUTE AUTO 1.5 x10^3/uL (1.0-4.8); LYMPHOCYTES PERCENT AUTO 14.7 % (25.0-50.0); MEAN CORPUSCULAR HEMOGLOBIN 29.5 pg (26.0-32.0); MEAN CORPUSCULAR VOLUME 89.4 fL (78.0-93.0); MONOCYTES ABSOLUTE AUTO 0.7 x10^3/uL (0.0-0.8); MONOCYTES PERCENT AUTO 6.9 % (2.0-11.0); NEUTROPHILS ABSOLUTE AUTO 7.6 x10^3/uL (1.8-7.7); PLATELET COUNT,PLT 162 x10^3/uL (130-400); RED BLOOD CELL COUNT 4.07 x10^6/uL (4.00-5.50)
[2024-02-29 06:59] LABS: ANION GAP 8.7 mmol/L (5-15); CALCIUM 7.6 mg/dL (8.5-10.1); CREATININE 0.9 mg/dL (0.55-1.02); EST CRCL DRUG DOSING (CG) 36.43 mL/min; POTASSIUM,K 3.7 mmol/L (3.5-5.1)
[2024-02-29] MEDS: Acetaminophen 325 MG Tab PO PRN (15:40)
[2024-03-01 06:54] LABS: BASOPHILS PERCENT AUTO 0.2 % (0.2-1.2); EOSINOPHILS ABSOLUTE AUTO 0.3 x10^3/uL (0.0-0.5); EOSINOPHILS PERCENT AUTO 2.7 % (0.0-4.0); HEMATOCRIT 36.8 % (33.0-47.0); HEMOGLOBIN 12.2 g/dL (12.0-16.0); IMMATURE GRAN ABSOLUTE AUTO 0.01 x10^3/uL (0.00-0.07); LYMPHOCYTES ABSOLUTE AUTO 0.9 x10^3/uL (1.0-4.8); LYMPHOCYTES PERCENT AUTO 9.7 % (25.0-50.0); MEAN CORPUSCULAR HEMOGLOBIN 29.6 pg (26.0-32.0); MEAN CORPUSCULAR HGB CONC 33.2 g/dL (32.0-36.0); MEAN CORPUSCULAR VOLUME 89.3 fL (78.0-93.0); MONOCYTES ABSOLUTE AUTO 0.6 x10^3/uL (0.0-0.8); MONOCYTES PERCENT AUTO 6.2 % (2.0-11.0); NEUTROPHILS ABSOLUTE AUTO 7.5 x10^3/uL (1.8-7.7); NEUTROPHILS PERCENT AUTO 81.1 % (50.0-80.0); PLATELET COUNT,PLT 171 x10^3/uL (130-400); RED BLOOD CELL COUNT 4.12 x10^6/uL (4.00-5.50); WHITE BLOOD CELL COUNT,WBC 9.2 x10^3/uL (4.0-10.0)
[2024-03-01 07:20] LABS: A/G RATIO 0.68; ALBUMIN 2.3 g/dL (3.4-5.0); BILIRUBIN TOTAL 0.1 mg/dL (0.2-1.0); C-REACTIVE PROTEIN 8.25 mg/dL (<=0.50); CALCIUM 7.9 mg/dL (8.5-10.1); CREATININE 0.6 mg/dL (0.55-1.02); EST CRCL DRUG DOSING (CG) 54.64 mL/min; MAGNESIUM 1.8 mg/dL (1.8-2.4); POTASSIUM,K 4.3 mmol/L (3.5-5.1); PROTEIN TOTAL,TP 5.7 g/dL (6.4-8.2)
[2024-03-01 07:30] LABS: ANION GAP 7.3 mmol/L (5-15)
[2024-03-01] MEDS ORDERED: Sodium Chloride 0.9% 10 ML Syringe FLUSH PRN (08:21)
[2024-03-01] MEDS: predniSONE 20 MG Tab PO SCH (09:13)
[2024-03-01] MEDS: Enoxaparin 40 MG/0.4 ML Syringe SUBCUT SCH (09:13)
[2024-03-01] MEDS: Furosemide 20 MG Tab PO ONE (10:28)
[2024-03-01] MEDS: Albuterol/Ipratropium 3.0-0.5 MG/3 ML Neb Soln NEB SCH (10:28)
[2024-03-02 06:45] LABS: HEMATOCRIT 32.5 % (33.0-47.0); HEMOGLOBIN 11.1 g/dL (12.0-16.0); MEAN CORPUSCULAR HEMOGLOBIN 30.1 pg (26.0-32.0); MEAN CORPUSCULAR HGB CONC 34.2 g/dL (32.0-36.0); MEAN CORPUSCULAR VOLUME 88.1 fL (78.0-93.0); RED BLOOD CELL COUNT 3.69 x10^6/uL (4.00-5.50); WHITE BLOOD CELL COUNT,WBC 7.1 x10^3/uL (4.0-10.0)
[2024-03-02 07:13] LABS: CALCIUM 8.2 mg/dL (8.5-10.1); CREATININE 0.6 mg/dL (0.55-1.02); EST CRCL DRUG DOSING (CG) 54.64 mL/min; POTASSIUM,K 3.7 mmol/L (3.5-5.1)
[2024-03-02 07:18] LABS: ANION GAP 8.7 mmol/L (5-15)
[2024-03-02] MEDS: Cefuroxime 250 MG Tab PO SCH (09:27)
== END 2024-03-02 10:02 | disposition swing bed (61) | DRG 193 ==
LOC: VM.ED 17:09 → VM.MS 19:18 → OBSVTOIN 02-27 19:19
PROVIDERS: ADMIT Physician Assistant; ATTEND Physician Assistant
DX: J18.9 Pneumonia, unspecified organism (principal); I10 Essential (primary) hypertension; J44.9 Chronic obstructive pulmonary disease, unspecified; J96.01 Acute respiratory failure with hypoxia; J44.0 Chronic obstructive pulmonary disease with (acute) lower respiratory infection; J44.1 Chronic obstructive pulmonary disease with (acute) exacerbation; G93.40 Encephalopathy, unspecified; E46 Unspecified protein-calorie malnutrition; G89.29 Other chronic pain; M54.50 Low back pain, unspecified; G47.00 Insomnia, unspecified; Z66 Do not resuscitate; I11.0 Hypertensive heart disease with heart failure; I50.9 Heart failure, unspecified; K21.9 Gastro-esophageal reflux disease without esophagitis; R62.7 Adult failure to thrive; M81.0 Age-related osteoporosis without current pathological fracture; J43.1 Panlobular emphysema; D50.9 Iron deficiency anemia, unspecified; E66.9 Obesity, unspecified; M19.90 Unspecified osteoarthritis, unspecified site; M14.671 Charcot's joint, right ankle and foot; E86.0 Dehydration; F34.1 Dysthymic disorder; R29.6 Repeated falls; E87.6 Hypokalemia; E83.42 Hypomagnesemia; H35.3231 Exudative age-related macular degeneration, bilateral, with active choroidal neovascularization; I95.9 Hypotension, unspecified; F17.200 Nicotine dependence, unspecified, uncomplicated; Z99.81 Dependence on supplemental oxygen; Z79.82 Long term (current) use of aspirin; Z86.010 Personal history of colon polyps; Z90.710 Acquired absence of both cervix and uterus; Z90.49 Acquired absence of other specified parts of digestive tract; Z98.49 Cataract extraction status, unspecified eye; Z98.890 Other specified postprocedural states; Z79.899 Other long term (current) drug therapy; Z68.28 Body mass index [BMI] 28.0-28.9, adult
CPT/HCPCS: 36415; 70450; 71045; 80053; 81001; 83605; 84484; 85025; 93005; 93010; 99284; 99285; A9270 ×11; J0696; 51702; 71046; 80048; 83735; 83880; 85027; 86140; 87086; 94640; 94760; 97161-GP; 97166-GO; 97530-GP; 97535-GO; J1650; J3480; J3490; J7030; J7512; J7620-GY